=== PATIENT | male | born 1970 | race Caucasian/White ===

== ENCOUNTER 2019-06-07 18:29 | Inpatient (IN) | payer MEDICARE, SELFPAY ==
[2019-06-07 19:13] VITALS: BP 155/92; PULSE 84; RESP 18; TEMP 37.1; O2SAT 97; BMI 34.9
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
[2019-06-07 21:20] VITALS: BP 148/94; PULSE 78; RESP 18; O2SAT 99
--- NOTE | 2019-06-07 21:27 | XRR_ITS ---
PROCEDURE INFORMATION: Exam: XR Abdomen, 1 View Exam date and time: 06/07/2019 9:29 PM Age: 48 years old Clinical indication: Abdominal pain; Prior surgery; Surgery type: Gb; Additional info: Abd pain TECHNIQUE: Imaging protocol: XR of the abdomen. Views: Frontal supine view of the abdomen. 1 View. COMPARISON: CR Abdomen Portable 1 view [id number] 12/24/2016 10:38 AM FINDINGS: Gastrointestinal tract: Normal. No bowel dilation. There has been a cholecystectomy. Moderate colonic stool is noted. Bones/joints: Unremarkable. XR/XR KUB portable [id number] IMPRESSION: No acute findings.
[2019-06-07 21:54] VITALS: RESP 18; O2SAT 98
[2019-06-07 21:54] LABS: Bilirubin Urine Neg (NEGATIVE); Blood Urine Neg (Negative); Glucose Urine UA Norm (Normal); Ketones Urine Negative (Negative); Leukocyte Esterase Urine Negative (Negative); Nitrate Urine Negative (Negative); Protein Urine Neg (Negative); Urine Appearance Clear (CLEAR); Urine Color Straw (Yellow); Urobilinogen Urine Norm (Negative); pH Urine 6.5 (5-7)
[2019-06-07] MEDS: HYDROmorphone 1 mg/mL INJ 1 mL IV (21:54)
[2019-06-07 21:55] VITALS: RESP 18; O2SAT 98
[2019-06-07 21:55] LABS: Add Urine Culture? No; Bacteria Urine TRACE; WBC Urine RARE /hpf (0-5)
[2019-06-07] MEDS: HYDROmorphone 1 mg/mL INJ 1 mL IVP (21:55)
[2019-06-07] MEDS: ondansetron 2 mg/ML SDV 2 mL 4 MG IVP (21:57)
[2019-06-07 21:58] LABS: Basophils # 0.1 10^3/uL (0.0-0.1); Basophils % 0.6 %; Eosinophils # 0.2 10^3/uL (0.0-0.8); Eosinophils % 1.3 %; Hematocrit 39.8 % (42.0-52.0); Hemoglobin 13.7 g/dL (11.7-16.6); Lymphocytes # 4.4 10^3/uL (0.8-4.8); Lymphocytes % 26.6 %; Mean Corpuscular HGB Conc 34.4 g/dL (30.0-36.0); Mean Corpuscular Hemoglobin 30.7 pg (28.0-34.0); Mean Corpuscular Volume 89.2 fL (80-94); Mean Platelet Volume 8.8 fL (7.4-10.4); Monocytes # 1.3 10^3/uL (0.2-0.9); Monocytes % 7.8 %; Neutrophils # 10.6 10^3/uL (1.8-7.7); Neutrophils % 63.3 %; Nucleated Red Blood Cells % 0 %; Platelet Count 428 10^3/cmm (130-400); Red Blood Count 4.46 10^6/uL (4.1-5.3); Red Cell Distribution Width 13.3 % (12.1-15.1); White Blood Count 16.7 10^3/uL (4.0-10.0)
[2019-06-07 22:17] LABS: Alanine Aminotransferase 24 U/L (0-41); Albumin Level 4.4 g/dL (3.5-5.2); Alkaline Phosphatase 152 IU/L (40-130); Anion Gap 17.9 (5-19); Aspartate Amino Transferase 13 U/L (0-40); Blood Urea Nitrogen 9 mg/dL (6-20); C Reactive Protein 70.8 mg/L (0.0-4.9); Calcium 10.2 mg/Dl (8.6-10.0); Carbon Dioxide 21 mmol/L (22-29); Chloride 98 mmol/L (98-107); Globulin 3.8 g/dL (1.3-4.6); Glomerular Filtration Rate 102.7 mL/min (90-130); Glucose 177 mg/dL (74-109); Potassium 3.9 mmol/L (3.5-5.1); Sodium 133 mmol/L (136-145); Total Bilirubin 0.2 mg/dL (0.15-1.2); Total Protein 8.2 g/dL (6.6-8.7)
[2019-06-07 23:18] VITALS: BP 150/99; PULSE 83; RESP 18; O2SAT 98
--- NOTE | 2019-06-07 23:55 | CTR_ITS ---
PROCEDURE INFORMATION: Exam: CT Abdomen And Pelvis With Contrast Exam date and time: 06/07/2019 12:10 AM Age: 48 years old Clinical indication: Abdominal pain; Acute; Prior surgery; Surgery date: 6+ months; Surgery type: Cholecystectomy; Additional info: Abd pain, leukocytosis TECHNIQUE: Imaging protocol: Computed tomography of the abdomen and pelvis with intravenous contrast. Total DLP: 1914.39 mGy-cm Radiation optimization: All CT scans at this facility use at least one of these dose optimization techniques: automated exposure control; mA and/or kV adjustment per patient size (includes targeted exams where dose is matched to clinical indication); or iterative reconstruction. Contrast material: OMNI 300; Contrast volume: 95 ml; Contrast route: 20G; COMPARISON: CT Chest/Abdomen/Pelvis w IV* 2017-02-17 08:51 FINDINGS: Lungs: Left costophrenic sulcus 8mm pulmonary nodule. Liver: Numerous hypodense liver lesions with some adjacent enhancement, additionally lesions are new since 2016. Nonspecific, question liver abscesses given the history. Gallbladder and bile ducts: Cholecystectomy clips in the right upper quadrant. Pancreas: Peripancreatic stranding. Hypodense possible mass in the pancreatic head/uncinate process measuring 2.1 cm. Suspicious for pancreatic mass and acute interstitial pancreatitis. Spleen: Normal. No splenomegaly. Adrenals: Normal. No mass. Kidneys and ureters: Mild nonspecific perinephric stranding. Stomach and bowel: Unremarkable. No obstruction. No mucosal thickening. Appendix: No evidence of appendicitis. Intraperitoneal space: Unremarkable. No free air. No significant fluid collection. Vasculature: Mild to moderate aortic and iliac artery atherosclerotic calcification. Lymph nodes: Unremarkable. No enlarged lymph nodes. Bladder: Unremarkable as visualized. Reproductive: Unremarkable as visualized. Bones/joints: Mild lumbar spondylosis. Moderate lumbar spondylosis. Minimal levoconvex lumbar curvature. Left 12th rib fracture is chronic. Soft tissues: Gynecomastia. Small left inguinal fat protruding hernia. CT/CT abdomen pelvis w con* [id number] IMPRESSION: 1. Numerous hypodense liver lesions with some adjacent enhancement, additionally lesions are new since 2017. Nonspecific, question liver abscesses given the history. Metastases also possible. 2. Peripancreatic stranding. Hypodense possible mass in the pancreatic head/uncinate process measuring 2.1 cm. Suspicious for pancreatic mass and acute interstitial pancreatitis. 3. Left costophrenic sulcus 8mm pulmonary nodule. COMMENT: As per Fleischner Society guidelines for follow-up and management of pulmonary nodules: For patients at low risk (minimal or absent history of smoking and of other known risk factors), recommend initial follow-up chest CT at 6-12 months then at 18-24 months if no change. For patient at high risk (history of smoking or of other known risk factors), recommend initial follow-up chest CT at 3-6 months, then at 9-12 and 24 months if no change. Radiation Dose CTDIVOL = (mGy): DLP = 1914.39 (mGy-cm)
[2019-06-08] VITALS (21 sets, daily range): BP systolic 132–198; BP diastolic 83–131; PULSE 71–113; RESP 16–22; TEMP 36.3–36.8; O2SAT 95–99
[2019-06-08] MEDS: HYDROmorphone 1 mg/mL INJ 1 mL IVP ×3 (01:17→19:53)
[2019-06-08] MEDS: morphine 4 mg/mL SDV 1 mL IVP ×4 (03:21→20:48)
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
[2019-06-08] MEDS: ketorolac 30 mg/mL INJ IVP (04:00)
[2019-06-08 04:55] LABS: Lipase 722 U/L (13-60)
[2019-06-08] MEDS: metoprolol tartrate 25 mg Tablet PO ×3 (04:59→17:24)
[2019-06-08] MEDS: lisinopril 20 mg Tablet PO ×2 (04:59→09:07)
[2019-06-08] MEDS: trazodone 100 mg Tablet 200 MG PO ×2 (04:59→20:12)
[2019-06-08] MEDS: LORazepam 2 mg/mL INJ 1 mL 1 MG IVP (05:00)
[2019-06-08] MEDS: enoxaparin 40 mg/0.4 mL Syringe SUBCUT (05:00)
[2019-06-08] MEDS: sodium chloride 0.9% 1,000 ML 150 ML IV ×3 (05:33→22:06)
[2019-06-08] MEDS: pantoprazole DR 40 mg Tablet PO (09:04)
[2019-06-08] MEDS: aspirin 81 mg EC Tablet PO (09:04)
[2019-06-08] MEDS: clopidogrel 75 mg Tablet PO (09:04)
[2019-06-08] MEDS: PARoxetine 20 mg Tablet 40 MG PO (09:08)
[2019-06-08] MEDS: sennosides-docusate Tablet 1 TAB PO ×2 (09:13→17:24)
[2019-06-08] MEDS: NIFEdipine ER (24 hr) 30 mg Tablet 45 MG PO (13:00)
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
[2019-06-08] MEDS: cefTRIAXone 2,000 MG in sodium chloride 0.9% (plus) 50 ML 100 MG IV (14:51)
[2019-06-08] MEDS: hyDRALAzine 20 mg/mL INJ 1 mL 10 MG IVP (20:13)
[2019-06-08] MEDS: tizanidine 4 mg Tablet PO (20:48)
[2019-06-09] VITALS (15 sets, daily range): BP systolic 159–211; BP diastolic 86–121; PULSE 74–103; RESP 16–22; TEMP 36.7–36.9; O2SAT 92–99
[2019-06-09] MEDS: HYDROmorphone 1 mg/mL INJ 1 mL IVP ×4 (01:14→20:50)
[2019-06-09] MEDS: morphine 4 mg/mL SDV 1 mL IVP ×5 (02:17→17:27)
[2019-06-09 04:34] LABS: Tumor Marker Alpha Fetoprotein 1.5 ng/mL (0-8.3)
[2019-06-09 04:47] LABS: Triglycerides 166 mg/dL (0-150)
[2019-06-09] MEDS: tizanidine 4 mg Tablet PO (05:08)
[2019-06-09] MEDS: enoxaparin 40 mg/0.4 mL Syringe SUBCUT (05:08)
[2019-06-09 06:33] LABS: Basophils # 0.1 10^3/uL (0.0-0.1); Basophils % 0.7 %; Eosinophils # 0.2 10^3/uL (0.0-0.8); Eosinophils % 1.6 %; Hematocrit 41.1 % (42.0-52.0); Hemoglobin 13.5 g/dL (11.7-16.6); Lymphocytes # 2.9 10^3/uL (0.8-4.8); Lymphocytes % 23.9 %; Mean Corpuscular HGB Conc 32.8 g/dL (30.0-36.0); Mean Corpuscular Hemoglobin 29.9 pg (28.0-34.0); Mean Corpuscular Volume 91.1 fL (80-94); Mean Platelet Volume 8.9 fL (7.4-10.4); Monocytes # 1.3 10^3/uL (0.2-0.9); Monocytes % 10.6 %; Neutrophils # 7.6 10^3/uL (1.8-7.7); Neutrophils % 62.8 %; Nucleated Red Blood Cells % 0 %; Platelet Count 393 10^3/cmm (130-400); Red Blood Count 4.51 10^6/uL (4.1-5.3); Red Cell Distribution Width 13.3 % (12.1-15.1)
[2019-06-09 06:46] LABS: Alanine Aminotransferase 58 U/L (0-41); Albumin Level 4.4 g/dL (3.5-5.2); Alkaline Phosphatase 168 IU/L (40-130); Anion Gap 17.9 (5-19); Aspartate Amino Transferase 45 U/L (0-40); Blood Urea Nitrogen 4 mg/dL (6-20); Calcium 9.6 mg/Dl (8.6-10.0); Carbon Dioxide 21 mmol/L (22-29); Chloride 99 mmol/L (98-107); Globulin 2.4 g/dL (1.3-4.6); Glomerular Filtration Rate 143.2 mL/min (90-130); Glucose 184 mg/dL (74-109); Potassium 3.9 mmol/L (3.5-5.1); Sodium 134 mmol/L (136-145); Total Bilirubin 0.3 mg/dL (0.15-1.2); Total Protein 6.8 g/dL (6.6-8.7)
[2019-06-09 07:13] LABS: Lipase 590 U/L (13-60)
[2019-06-09] MEDS: sodium chloride 0.9% 1,000 ML 150 ML IV ×2 (09:51→14:01)
[2019-06-09] MEDS: lisinopril 20 mg Tablet PO (09:52)
[2019-06-09] MEDS: clopidogrel 75 mg Tablet PO (09:52)
[2019-06-09] MEDS: aspirin 81 mg EC Tablet PO (09:52)
[2019-06-09] MEDS: sennosides-docusate Tablet 1 TAB PO (09:52)
[2019-06-09] MEDS: NIFEdipine ER (24 hr) 30 mg Tablet 45 MG PO (09:55)
[2019-06-09] MEDS: metoprolol tartrate 25 mg Tablet PO ×2 (11:38→19:01)
[2019-06-09] MEDS: pantoprazole DR 40 mg Tablet PO (11:39)
[2019-06-09] MEDS: PARoxetine 20 mg Tablet 40 MG PO (11:40)
[2019-06-09 12:21] LABS: Glucose Point of Care 193 mg/dL (70-110)
--- NOTE | 2019-06-09 12:37 | MRR_ITS ---
PROCEDURE INFORMATION: Exam: MR Abdomen Without Contrast Exam date and time: 06/09/2019 9:57 AM Age: 48 years old Clinical indication: Abdominal pain; Prior surgery; Surgery type: Gb; Patient HX: Pancreatic mass or lesion seen on CT; Additional info: Pancreatic mass, liver lesions TECHNIQUE: Imaging protocol: MR of the abdomen without contrast. COMPARISON: CR XR KUB portable [id number] 06/07/2019 10:03 PM, CT of the abdomen and pelvis 06/08/2019. FINDINGS: Limitations: Evaluation is limited secondary to multisequence motion artifact. Liver: There are multiple scattered T2 bright foci within the hepatic parenchyma, with the largest measuring up to 1.5 cm within the posterior right hepatic lobe (image 22, series 7). Additional small foci measure 1 cm or less. Lacking contrast administration coupled with motion artifact, these lesions remain indeterminate. Gallbladder and bile ducts: The gallbladder surgically absent. The common bile duct is normal in caliber. No definite filling defects to suggest choledocholithiasis. No significant intrahepatic ductal dilation. Pancreas: The pancreatic duct is within normal limits. There is a small amount of peripancreatic fluid signal. There is focal increased signal within the pancreatic head/uncinate process. No organized or drainable fluid collection identified. Spleen: No splenomegaly. Adrenals: Unremarkable is visualized. Kidneys and ureters: There is a trace amount of bilateral perinephric fluid signal, which may be physiologic. There is no evidence of hydronephrosis. Stomach and bowel: There is a small amount of fluid signal along the proximal duodenum. Visualized bowel is otherwise grossly unremarkable. Intraperitoneal space: See Pancreas Finding. Arteries: No abdominal aortic aneurysm. Bones/joints: Unremarkable as visualized. Soft tissues: Unremarkable. MR/MR MRCP [id number] IMPRESSION: 1. Findings suggestive of pancreatitis. Focal increased signal within the pancreatic head/uncinate process is indeterminate and may reflect focal interstitial edema. There is no organized or drainable fluid collection identified. The pancreatic duct remains normal in caliber. Consider follow-up contrast-enhanced evaluation in 4-6 weeks following the acute phase to exclude the possibility of a pancreatic head mass. 2. Multiple scattered foci of increased signal within the hepatic parenchyma, the largest measuring up to 1.5 cm. The lack of intravenous contrast coupled with motion artifact make these lesions indeterminate. Differential considerations are broad and include small cysts or hemangiomas with abscesses and metastatic disease not entirely excluded. Attention on follow-up suggested. 3. Status post cholecystectomy. No evidence of choledocholithiasis. 4. Trace fluid signal along the proximal duodenum, likely secondary to adjacent pancreatic inflammatory change. A component of duodenitis is possible.
[2019-06-09] MEDS: fluticasone nasal spray 16gm Btl 1 SPRAY NASAL (14:00)
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
--- NOTE | 2019-06-09 15:26 | PC.NURSE ---
This nurse accompanied pt to MRI. Pt given 4mg morphine IVP during MRI. See MAR for details.
[2019-06-09 16:54] LABS: Glucose Point of Care 179 mg/dL (70-110)
[2019-06-09] MEDS: cefTRIAXone 2,000 MG in sodium chloride 0.9% (plus) 50 ML 100 MG IV (17:38)
[2019-06-09] MEDS: oxyCODONE 20 mg ER (12 HR) Tablet PO (19:02)
[2019-06-09] MEDS: trazodone 100 mg Tablet 200 MG PO (20:49)
[2019-06-09] MEDS: sodium chloride 0.9% 1,000 ML 75 ML IV (20:49)
[2019-06-09 21:48] LABS: Glucose Point of Care 149 mg/dL (70-110)
--- NOTE | 2019-06-09 23:42 | PC.NURSE ---
reassessed pain. pt is asleep in the bed. pt shows no s/s distress, or discomfort. respirations equal bilat
[2019-06-10] VITALS (13 sets, daily range): BP systolic 118–178; BP diastolic 79–105; PULSE 73–92; RESP 18–22; TEMP 36.6–36.8; O2SAT 92–99
[2019-06-10] MEDS: morphine 4 mg/mL SDV 1 mL IVP ×4 (01:48→20:32)
[2019-06-10] MEDS: HYDROmorphone 1 mg/mL INJ 1 mL IVP ×3 (02:26→14:22)
[2019-06-10] MEDS: enoxaparin 40 mg/0.4 mL Syringe SUBCUT (05:44)
[2019-06-10] MEDS: PARoxetine 20 mg Tablet 40 MG PO (08:19)
[2019-06-10] MEDS: pantoprazole DR 40 mg Tablet PO (08:19)
[2019-06-10] MEDS: lisinopril 20 mg Tablet PO (08:22)
[2019-06-10] MEDS: metoprolol tartrate 25 mg Tablet PO ×2 (08:22→17:50)
[2019-06-10] MEDS: oxyCODONE 20 mg ER (12 HR) Tablet PO ×2 (08:24→17:50)
[2019-06-10] MEDS: aspirin 81 mg EC Tablet PO (08:25)
[2019-06-10] MEDS: clopidogrel 75 mg Tablet PO (08:25)
[2019-06-10] MEDS: sennosides-docusate Tablet 1 TAB PO ×2 (08:25→17:50)
[2019-06-10] MEDS: fluticasone nasal spray 16gm Btl 1 SPRAY NASAL (08:25)
[2019-06-10 08:38] LABS: Basophils # 0.1 10^3/uL (0.0-0.1); Basophils % 0.6 %; Eosinophils # 0.2 10^3/uL (0.0-0.8); Eosinophils % 1.5 %; Hematocrit 49.2 % (42.0-52.0); Hemoglobin 15.8 g/dL (11.7-16.6); Lymphocytes # 2.8 10^3/uL (0.8-4.8); Lymphocytes % 24.6 %; Mean Corpuscular HGB Conc 32.1 g/dL (30.0-36.0); Mean Corpuscular Hemoglobin 30.9 pg (28.0-34.0); Mean Corpuscular Volume 96.1 fL (80-94); Mean Platelet Volume 9.1 fL (7.4-10.4); Monocytes # 1.1 10^3/uL (0.2-0.9); Monocytes % 10.1 %; Neutrophils # 7.1 10^3/uL (1.8-7.7); Neutrophils % 62.9 %; Nucleated Red Blood Cells % 0 %; Platelet Count 388 10^3/cmm (130-400); Red Blood Count 5.12 10^6/uL (4.1-5.3); Red Cell Distribution Width 13.6 % (12.1-15.1); White Blood Count 11.3 10^3/uL (4.0-10.0)
--- NOTE | 2019-06-10 09:00 | MR_ITS ---
WS: [id number] MRI ABDOMEN WITHOUT AND WITH GADOLINIUM ENHANCEMENT INDICATION: Assess liver lesions TECHNIQUE: MRI of the abdomen without and with gadolinium enhancement. Motion artifact significantly degrades images. FINDINGS: Exam is significantly limited due to motion artifact. Comparison multiple recent examinations. Prior cholecystectomy. Multiple T2 hyperintense lesions with in the liver unchanged since recent examinations. Largest lesion measures approximately 1.5 CM. Some of the lesions demonstrate peripheral enhancement on the postgadolinium images although degraded by m otion. These lesions remain indeterminant but considering development since 2017 and peripheral enhan cement findings are suspicious for metastatic disease or multifocal abscess. Some may represent irvin nous hemangiomas. Portal vein and splenic vein appear patent. Adrenal glands are normal. Pancreas is only partially visualized on this examination. Focal T2 hyperi ntense lesion in the head of the pancreas measuring 2 cm suspicious for underlying pancreatic neoplas m versus focal pancreatitis. Recommend further evaluation with ERCP. No significant pancreatic ductal dilatation. MR/MR abdomen wo/w con* [id number] IMPRESSION: 1. Images significantly limited by motion artifact. 2. Again seen are multiple T2 hyperintense lesions within the liver the larges t measuring 1.5 cm some with peripheral enhancement. Primary considerations are metastatic disease or multifocal abscess. Some may represent cavernous hemangi omas although the lesions are new since 2017 which is concerning 3. Recommend interval follow-up of the liver lesions with hepatic protocol mul tiphase CT abdomen pelvis after treatment. 4. Pancreas is only partially included on the study but persistent 2 cm round focal signal abnormality in the pancreas suspicious for pancreatic neoplasm jo ann aliya focal pancreatitis. Recommend further evaluation with ERCP. 5. No significant pancreatic ductal dilatation. 6. Prior cholecystectomy.
[2019-06-10 09:04] LABS: Alanine Aminotransferase 71 U/L (0-41); Albumin Level 4.4 g/dL (3.5-5.2); Alkaline Phosphatase 224 IU/L (40-130); Anion Gap 24.1 (5-19); Blood Urea Nitrogen 5 mg/dL (6-20); Carbon Dioxide 16 mmol/L (22-29); Chloride 99 mmol/L (98-107); Globulin 2.8 g/dL (1.3-4.6); Glomerular Filtration Rate 119.9 mL/min (90-130); Glucose 159 mg/dL (74-109); Potassium 4.1 mmol/L (3.5-5.1); Sodium 135 mmol/L (136-145); Total Bilirubin 0.3 mg/dL (0.15-1.2); Total Protein 7.2 g/dL (6.6-8.7)
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
[2019-06-10 09:42] LABS: Aspartate Amino Transferase 43 U/L (0-40); Lipase 386 U/L (13-60)
[2019-06-10 11:55] LABS: Glucose Point of Care 157 mg/dL (70-110)
[2019-06-10] MEDS: sodium chloride 0.9% 1,000 ML 75 ML IV ×2 (12:58→17:55)
[2019-06-10] MEDS: LORazepam 2 mg/mL INJ 1 mL IVP (14:23)
[2019-06-10 17:03] LABS: Glucose Point of Care 140 mg/dL (70-110)
[2019-06-10] MEDS: cefTRIAXone 2,000 MG in sodium chloride 0.9% (plus) 50 ML 100 MG IV (17:50)
[2019-06-10] MEDS: trazodone 100 mg Tablet 200 MG PO (20:33)
[2019-06-10 21:21] LABS: Glucose Point of Care 142 mg/dL (70-110)
[2019-06-10] MEDS: hyDROXYzine 25 mg Capsule PO (21:42)
[2019-06-10] MEDS: tizanidine 4 mg Tablet PO (21:42)
[2019-06-10] MEDS: ketorolac 30 mg/mL INJ 15 MG IVP (21:43)
[2019-06-11] VITALS (13 sets, daily range): BP systolic 124–200; BP diastolic 75–101; PULSE 62–75; RESP 14–23; TEMP 36.4–36.8; O2SAT 93–98
[2019-06-11] MEDS: morphine 4 mg/mL SDV 1 mL IVP ×3 (04:34→15:16)
[2019-06-11] MEDS: enoxaparin 40 mg/0.4 mL Syringe SUBCUT (04:35)
[2019-06-11] MEDS: ketorolac 30 mg/mL INJ 15 MG IVP ×3 (05:21→17:54)
--- NOTE | 2019-06-11 05:53 | PC.PHAR ---
NURSING CALLED AM 06/10/19 TO CLARIFY NIFEDIPINE DOSE - XL 30 MG 1.5 TABLETS. THESE CANNOT BE SPLIT. PROVIDER HAD NOT BEEN ASSIGNED OF PHONE CALL, PLACED MED ON HOLD PENDING NURSING CLARIFICATION
[2019-06-11 07:15] LABS: Glucose Point of Care 135 mg/dL (70-110)
[2019-06-11 08:29] LABS: Basophils # 0.1 10^3/uL (0.0-0.1); Basophils % 0.7 %; Eosinophils # 0.2 10^3/uL (0.0-0.8); Eosinophils % 1.8 %; Hematocrit 42.8 % (42.0-52.0); Hemoglobin 13.8 g/dL (11.7-16.6); Lymphocytes # 2.3 10^3/uL (0.8-4.8); Lymphocytes % 22.8 %; Mean Corpuscular HGB Conc 32.2 g/dL (30.0-36.0); Mean Corpuscular Hemoglobin 30.3 pg (28.0-34.0); Mean Corpuscular Volume 94.1 fL (80-94); Mean Platelet Volume 8.9 fL (7.4-10.4); Monocytes % 9.4 %; Neutrophils # 6.6 10^3/uL (1.8-7.7); Neutrophils % 65.1 %; Nucleated Red Blood Cells % 0 %; Platelet Count 403 10^3/cmm (130-400); Red Blood Count 4.55 10^6/uL (4.1-5.3); Red Cell Distribution Width 13.7 % (12.1-15.1); White Blood Count 10.1 10^3/uL (4.0-10.0)
[2019-06-11 08:46] LABS: Alanine Aminotransferase 53 U/L (0-41); Albumin Level 3.6 g/dL (3.5-5.2); Alkaline Phosphatase 226 IU/L (40-130); Anion Gap 24.1 (5-19); Blood Urea Nitrogen 8 mg/dL (6-20); Calcium 9.8 mg/Dl (8.6-10.0); Chloride 100 mmol/L (98-107); Globulin 3.5 g/dL (1.3-4.6); Glomerular Filtration Rate 102.7 mL/min (90-130); Glucose 140 mg/dL (74-109); Lipase 225 U/L (13-60); Potassium 4.1 mmol/L (3.5-5.1); Sodium 135 mmol/L (136-145); Total Bilirubin 0.2 mg/dL (0.15-1.2); Total Protein 7.1 g/dL (6.6-8.7)
[2019-06-11 08:51] LABS: Aspartate Amino Transferase 22 U/L (0-40); Carbon Dioxide 15 mmol/L (22-29)
[2019-06-11 09:09] LABS: Estmated Average Glucose 143; Hemoglobin A1C 6.6 % (4.0-6.0)
[2019-06-11] MEDS: metoprolol tartrate 25 mg Tablet PO ×2 (09:42→17:53)
[2019-06-11] MEDS: pantoprazole DR 40 mg Tablet PO (09:42)
[2019-06-11] MEDS: sennosides-docusate Tablet 2 TAB PO ×2 (09:42→17:53)
[2019-06-11] MEDS: clopidogrel 75 mg Tablet PO (09:42)
[2019-06-11] MEDS: aspirin 81 mg EC Tablet PO (09:42)
[2019-06-11] MEDS: PARoxetine 20 mg Tablet 40 MG PO (09:42)
[2019-06-11] MEDS: lisinopril 20 mg Tablet PO (09:42)
[2019-06-11] MEDS: oxyCODONE 20 mg ER (12 HR) Tablet PO ×2 (09:42→17:53)
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
--- NOTE | 2019-06-11 10:50 | PC.SOCIAL ---
IMM Page 2 of IMM explained to patient. He is unable to physically sign. Initialed, dated, and timed and placed in chart. Copy provided to patient.
[2019-06-11 11:13] LABS: Cancer Antigen 19 9 1236 U/mL (0-35)
[2019-06-11 11:36] LABS: Glucose Point of Care 143 mg/dL (70-110)
[2019-06-11] MEDS: NIFEdipine 10 mg Capsule 20 MG PO (12:52)
[2019-06-11] MEDS: fluticasone nasal spray 16gm Btl 1 SPRAY NASAL (12:53)
[2019-06-11] MEDS: cefTRIAXone 2,000 MG in sodium chloride 0.9% (plus) 50 ML 100 MG IV (16:05)
[2019-06-11 17:02] LABS: Glucose Point of Care 121 mg/dL (70-110)
[2019-06-11] MEDS: HYDROmorphone 1 mg/mL INJ 1 mL 0.5 MG IVP ×3 (19:56→23:33)
[2019-06-11 21:34] LABS: Glucose Point of Care 139 mg/dL (70-110)
[2019-06-11] MEDS: hyDRALAzine 20 mg/mL INJ 1 mL 10 MG IVP (21:42)
[2019-06-11] MEDS: tizanidine 4 mg Tablet PO (22:26)
[2019-06-11] MEDS: trazodone 100 mg Tablet 200 MG PO (22:26)
[2019-06-11] MEDS: sodium chloride 0.9% 1,000 ML 75 ML IV (22:33)
[2019-06-11] MEDS: hyDROXYzine 25 mg Capsule PO (23:34)
[2019-06-12] VITALS (9 sets, daily range): BP systolic 151–173; BP diastolic 82–98; PULSE 64–70; RESP 14–20; TEMP 36.4–36.9; O2SAT 95–98
[2019-06-12] MEDS: ketorolac 30 mg/mL INJ 15 MG IVP ×3 (00:37→13:31)
[2019-06-12] MEDS: enoxaparin 40 mg/0.4 mL Syringe SUBCUT (06:04)
[2019-06-12 07:02] LABS: Glucose Point of Care 144 mg/dL (70-110)
[2019-06-12] MEDS: HYDROmorphone 1 mg/mL INJ 1 mL 0.5 MG IVP ×6 (07:24→17:49)
[2019-06-12] MEDS: sennosides-docusate Tablet 2 TAB PO (09:28)
[2019-06-12] MEDS: NIFEdipine 10 mg Capsule 20 MG PO ×3 (09:28→20:38)
[2019-06-12] MEDS: aspirin 81 mg EC Tablet PO (09:28)
[2019-06-12] MEDS: metoprolol tartrate 25 mg Tablet PO ×2 (09:28→17:13)
[2019-06-12] MEDS: PARoxetine 20 mg Tablet 40 MG PO (09:28)
[2019-06-12] MEDS: clopidogrel 75 mg Tablet PO (09:28)
[2019-06-12] MEDS: pantoprazole DR 40 mg Tablet PO (09:29)
[2019-06-12] MEDS: lisinopril 20 mg Tablet PO (09:29)
[2019-06-12] MEDS: oxyCODONE 20 mg ER (12 HR) Tablet PO ×2 (09:29→17:12)
[2019-06-12] MEDS: fluticasone nasal spray 16gm Btl 1 SPRAY NASAL (09:36)
[2019-06-12 12:19] LABS: Glucose Point of Care 147 mg/dL (70-110)
[2019-06-12] MEDS: sodium chloride 0.9% 1,000 ML 75 ML IV (12:48)
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
[2019-06-12 16:55] LABS: Glucose Point of Care 111 mg/dL (70-110)
[2019-06-12] MEDS: cefTRIAXone 2,000 MG in sodium chloride 0.9% (plus) 50 ML 100 MG IV (17:12)
--- NOTE | 2019-06-12 19:00 | PC.NURSE ---
Introduction of staff and report received, aidet.
[2019-06-12] MEDS: trazodone 100 mg Tablet 200 MG PO (20:38)
[2019-06-12 20:57] LABS: Glucose Point of Care 112 mg/dL (70-110)
[2019-06-12] MEDS: ketorolac 30 mg/mL INJ IVP (21:03)
[2019-06-12] MEDS: saline nasal spray 44mL Btl 1 SPRAY NASAL (21:41)
[2019-06-13] VITALS (8 sets, daily range): BP systolic 136–205; BP diastolic 82–122; PULSE 69–87; RESP 18–22; TEMP 36.4–36.9; O2SAT 95–99
[2019-06-13] MEDS: ketorolac 30 mg/mL INJ IVP ×3 (02:17→15:30)
[2019-06-13] MEDS: tizanidine 4 mg Tablet PO ×3 (02:22→20:20)
[2019-06-13] MEDS: enoxaparin 40 mg/0.4 mL Syringe SUBCUT (04:32)
[2019-06-13] MEDS: sodium chloride 0.9% 1,000 ML 75 ML IV (04:35)
[2019-06-13] MEDS: lisinopril 20 mg Tablet PO (08:32)
[2019-06-13] MEDS: pantoprazole DR 40 mg Tablet PO (08:32)
[2019-06-13] MEDS: metoprolol tartrate 25 mg Tablet PO ×2 (08:32→17:17)
[2019-06-13] MEDS: PARoxetine 20 mg Tablet 40 MG PO (08:32)
[2019-06-13] MEDS: NIFEdipine 10 mg Capsule 20 MG PO ×3 (08:32→20:21)
[2019-06-13] MEDS: clopidogrel 75 mg Tablet PO (08:32)
[2019-06-13] MEDS: aspirin 81 mg EC Tablet PO (08:32)
[2019-06-13] MEDS: oxyCODONE 20 mg ER (12 HR) Tablet PO ×2 (08:33→17:16)
[2019-06-13] MEDS: sennosides-docusate Tablet 2 TAB PO ×2 (08:34→17:17)
[2019-06-13] MEDS: fluticasone nasal spray 16gm Btl 1 SPRAY NASAL (08:37)
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
[2019-06-13] MEDS: amoxicillin-clav 875-125 mg Tablet 1 TAB PO ×2 (09:31→17:17)
--- NOTE | 2019-06-13 10:35 | PC.SOCIAL ---
IMM Updated Page 2 of IMM updated and given to patient. Initialed, dated, and timed and placed back in chart.
[2019-06-13 11:35] LABS: Glucose Point of Care 150 mg/dL (70-110)
[2019-06-13] MEDS: simethicone 80 mg Chew PO (14:14)
[2019-06-13 16:21] LABS: Glucose Point of Care 153 mg/dL (70-110)
[2019-06-13] MEDS: ketorolac 10 mg Tablet PO (18:22)
[2019-06-13] MEDS: trazodone 100 mg Tablet 200 MG PO (20:20)
[2019-06-14] VITALS: BP 161/92; PULSE 85; RESP 18; TEMP 36.9; O2SAT 99
[2019-06-14] MEDS: ketorolac 10 mg Tablet PO ×3 (00:44→12:37)
[2019-06-14] MEDS: simethicone 80 mg Chew PO (00:46)
[2019-06-14] MEDS: tizanidine 4 mg Tablet PO ×2 (01:21→09:43)
[2019-06-14 06:36] LABS: Glucose Point of Care 203 mg/dL (70-110)
--- NOTE | 2019-06-14 07:39 | PC.NURSE ---
Patient refused 0700 vitals
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
[2019-06-14 09:16] VITALS: RESP 14
[2019-06-14] MEDS: oxyCODONE 20 mg ER (12 HR) Tablet PO (09:16)
[2019-06-14] MEDS: NIFEdipine 10 mg Capsule 20 MG PO ×2 (09:16→15:09)
[2019-06-14] MEDS: lisinopril 20 mg Tablet PO (09:16)
[2019-06-14] MEDS: sennosides-docusate Tablet 2 TAB PO (09:16)
[2019-06-14] MEDS: aspirin 81 mg EC Tablet PO (09:16)
[2019-06-14] MEDS: amoxicillin-clav 875-125 mg Tablet 1 TAB PO (09:16)
[2019-06-14] MEDS: clopidogrel 75 mg Tablet PO (09:16)
[2019-06-14] MEDS: pantoprazole DR 40 mg Tablet PO (09:16)
[2019-06-14] MEDS: PARoxetine 20 mg Tablet 40 MG PO (09:16)
[2019-06-14] MEDS: metoprolol tartrate 25 mg Tablet PO (09:16)
[2019-06-14] MEDS: fluticasone nasal spray 16gm Btl 1 SPRAY NASAL (09:18)
[2019-06-14 11:26] VITALS: BP 145/83; PULSE 77; RESP 18; TEMP 36.8; O2SAT 98
[2019-06-14 11:47] LABS: Glucose Point of Care 185 mg/dL (70-110)
[2019-06-14 15:21] VITALS: BP 165/112; PULSE 83; RESP 18; TEMP 36.4; O2SAT 98
[2019-06-14 15:53] VITALS: RESP 18; TEMP 36.4; O2SAT 98
[2019-06-14 15:54] VITALS: BP 145/83; PULSE 83; RESP 18; TEMP 36.4; O2SAT 98
--- NOTE | 2019-06-14 16:15 | PC.NURSE ---
Discharge Discharge instructions given per the physician's order. Patient verbalized understanding and did not have any further questions.
== END 2019-06-14 16:24 | disposition home health service (06) | DRG 440 ==
LOC: ER 21:05 → MEDSURG 06-08 03:58
PROVIDERS: Internal Medicine; Admitting Provider Internal Medicine; Emergency Provider Emergency Medicine; Family Provider Family Medicine; PCP Family Medicine; Visit Provider Family Medicine
DX: K85.90 Acute pancreatitis without necrosis or infection, unspecified (principal); R91.1 Solitary pulmonary nodule; K59.00 Constipation, unspecified; K76.9 Liver disease, unspecified; I10 Essential (primary) hypertension; E11.9 Type 2 diabetes mellitus without complications; E66.01 Morbid (severe) obesity due to excess calories; Z68.35 Body mass index [BMI] 35.0-35.9, adult; Z89.201 Acquired absence of right upper limb, unspecified level; F41.8 Other specified anxiety disorders; Z79.82 Long term (current) use of aspirin; Z79.02 Long term (current) use of antithrombotics/antiplatelets; F17.210 Nicotine dependence, cigarettes, uncomplicated
CPT/HCPCS: 36415; 36416; 45915; 74018; 74177; 74181; 74183; 80053; 81001; 82105; 82962; 83036; 83690; 84478; 85025; 86140; 86301; 87040; 90686; 96372; 96374; 96375; 99282; A9579; J0360; J0696; J1170; J1650; J1815; J1885; J2060; J2270; J2405; J7030; Q9967; S0030

== ENCOUNTER 2019-06-27 07:51 | Inpatient (IN) | payer MEDICARE, SELFPAY ==
[2019-06-27 07:51] VITALS: BP 158/88; PULSE 78; RESP 18; TEMP 36.8; O2SAT 98; BMI 33.2
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
--- NOTE | 2019-06-27 08:20 | ECG_ITS ---
Measurements Intervals [place] Rate: 75 P: 41 WA: 140 QRS: 33 QRSD: 102 T: 31 QT: 417 QTc: 467 SINUS RHYTHM Compared to ECG 03/28/2019 18:53:22 No significant changes Electronically Signed On 06-27-2019 15:26:21 HOSPITAL PLAN ADMINISTRATOR by Joe Ocampo M.D. [email or web address]
[2019-06-27] MEDS: LORazepam 1 mg Tablet PO (08:35)
[2019-06-27 08:45] LABS: Urine Appearance Clear (CLEAR); Urine Color Yellow (Yellow)
[2019-06-27 08:46] LABS: Add Urine Microscopic? YES; Bilirubin Urine 1+ (NEGATIVE); Blood Urine Neg (Negative); Glucose Urine UA Norm (Normal); Ketones Urine 3+ (Negative); Leukocyte Esterase Urine Negative (Negative); Nitrate Urine Negative (Negative); Protein Urine 1+ (Negative); Urobilinogen Urine 1 mg/dL (Negative)
[2019-06-27 08:52] LABS: Add Urine Culture? No; Bacteria Urine 1+; Mucus Urine 2+
[2019-06-27 08:57] LABS: Amphetamines Screen Urine Positive (Negative); Barbiturates Screen Urine Negative (Negative); Benzodiazepines Screen Urine Negative (Negative); Cocaine Screen Urine Negative (Negative); Opiate Screen Urine Negative (Negative); PCP Screen Urine Negative (Negative); THC Screen Urine Negative (Negative)
[2019-06-27] MEDS: LORazepam 2 mg/mL INJ 1 mL 1 MG IM (09:32)
[2019-06-27] MEDS: diphenhydrAMINE 50 mg/mL SDV 1mL IM (09:33)
[2019-06-27] MEDS: ziprasidone 20 mg/mL SDV IM (09:33)
[2019-06-27 10:05] LABS: Basophils # 0.1 10^3/uL (0.0-0.1); Basophils % 0.9 %; Eosinophils % 0.2 %; Hematocrit 39.5 % (42.0-52.0); Hemoglobin 13.5 g/dL (11.7-16.6); Lymphocytes # 1.9 10^3/uL (0.8-4.8); Lymphocytes % 19.1 %; Mean Corpuscular HGB Conc 34.2 g/dL (30.0-36.0); Mean Corpuscular Hemoglobin 30.1 pg (28.0-34.0); Monocytes # 0.5 10^3/uL (0.2-0.9); Monocytes % 5.3 %; Neutrophils # 7.3 10^3/uL (1.8-7.7); Neutrophils % 73.7 %; Nucleated Red Blood Cells % 0 %; Platelet Count 257 10^3/cmm (130-400); Red Blood Count 4.49 10^6/uL (4.1-5.3); Red Cell Distribution Width 13.7 % (12.1-15.1); White Blood Count 9.9 10^3/uL (4.0-10.0)
--- NOTE | 2019-06-27 10:12 | PC.NURSE ---
pt resting well after medication administration-1:1 sitter remains at bedside
[2019-06-27 11:26] LABS: Alanine Aminotransferase 86 U/L (0-41); Albumin Level 4.2 g/dL (3.5-5.2); Alcohol Level 47 mg/dL (0-10); Alkaline Phosphatase 155 IU/L (40-130); Aspartate Amino Transferase 79 U/L (0-40); Blood Urea Nitrogen 12 mg/dL (6-20); Calcium 8.9 mg/dL (8.5-10.5); Carbon Dioxide 15 mmol/L (22-29); Chloride 93 mmol/L (98-107); Glomerular Filtration Rate 89.7 mL/min (90-130); Glucose 156 mg/dL (74-109); Sodium 135 mmol/L (136-145); Thyroid Stimulating Hormone 0.68 uIU/mL (0.27-4.20); Total Bilirubin 0.4 mg/dL (0.15-1.2); Total Protein 7.2 g/dL (6.6-8.7)
[2019-06-27 11:30] LABS: Acetaminophen < 5.0 ug/mL (10-30); Salicylate < 0.3 mg/dL (3-10)
--- NOTE | 2019-06-27 11:42 | PC.PHAR ---
meds put in are meds that the pharmacy has filled recently-pt states he thinks that he is taking all the medications.
[2019-06-27 12:54] VITALS: BP 178/93; PULSE 91; RESP 16; TEMP 37; O2SAT 96
[2019-06-27 14:24] LABS: Testosterone Total 173.3 ng/dL (249-836)
[2019-06-27] MEDS: pantoprazole DR 40 mg Tablet PO (15:10)
[2019-06-27 15:28] VITALS: BP 149/87; PULSE 90; RESP 18; TEMP 36.8
[2019-06-27] MEDS: sennosides-docusate Tablet 2 TAB PO (17:38)
[2019-06-27] MEDS: isosorbide mononitrate ER 30 mg Tablet PO (17:38)
[2019-06-27] MEDS: metoprolol tartrate 50 mg Tablet PO (18:25)
[2019-06-27] MEDS: acetaminophen 325 mg Tablet 650 MG PO (18:25)
[2019-06-27] MEDS: ranolazine (12HR) 500 mg Tablet PO (19:00)
[2019-06-27] MEDS: hyDROXYzine 25 mg Capsule PO (21:20)
[2019-06-27] MEDS: trazodone 50 mg Tablet PO ×2 (21:23→22:27)
[2019-06-27 21:31] VITALS: BP 174/105; PULSE 86; RESP 21; TEMP 36.4; O2SAT 97
[2019-06-27 23:07] VITALS: RESP 16; O2SAT 96
[2019-06-28] MEDS: OLANZapine ODT 5 MG TABLET PO ×2 (00:37→09:19)
[2019-06-28] MEDS: acetaminophen 325 mg Tablet 650 MG PO ×3 (00:39→21:24)
--- NOTE | 2019-06-28 00:48 | PC.NURSE ---
Patient frequently up to the nurses station. Patient is irritable and reports feeling agitated and stated, I feel like I am going to flip out. Reported having difficulty sleeping. Received zyprexa zydis 5 mg PO and tylenol 650 mg PO for c/o headache with pain that he rates at a 5. Will reassess effectiveness of prn's and continue to monitor.
[2019-06-28 06:00] VITALS: BP 196/113; PULSE 101; RESP 18; TEMP 36.7; O2SAT 97
[2019-06-28] MEDS: cloNIDine 0.1 mg Tablet PO (06:46)
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
[2019-06-28] MEDS: ranolazine (12HR) 500 mg Tablet PO ×2 (09:19→18:24)
[2019-06-28] MEDS: meloxicam 7.5 mg tablet PO (09:19)
[2019-06-28] MEDS: clopidogrel 75 mg Tablet PO (09:20)
[2019-06-28] MEDS: lisinopril 20 mg Tablet PO (09:20)
[2019-06-28] MEDS: isosorbide mononitrate ER 30 mg Tablet PO ×2 (09:20→18:24)
[2019-06-28] MEDS: metoprolol tartrate 50 mg Tablet PO ×2 (09:20→18:24)
[2019-06-28] MEDS: NIFEdipine ER (24 hr) 30 mg Tablet 90 MG PO (09:21)
[2019-06-28] MEDS: pantoprazole DR 40 mg Tablet PO (09:22)
[2019-06-28] MEDS: sennosides-docusate Tablet 2 TAB PO ×2 (09:22→18:24)
[2019-06-28] MEDS: aspirin 81 mg EC Tablet PO (09:24)
[2019-06-28] MEDS: ketorolac 10 mg Tablet PO ×2 (09:55→16:01)
[2019-06-28] MEDS: tizanidine 4 mg Tablet PO ×2 (09:55→16:01)
[2019-06-28] MEDS: hyDROXYzine 25 mg Capsule PO ×3 (10:30→21:24)
[2019-06-28] MEDS: LORazepam 0.5 mg Tablet PO ×2 (12:16→18:32)
[2019-06-28 14:00] VITALS: BP 143/97; PULSE 127; RESP 18; TEMP 36.6; O2SAT 95
[2019-06-28] MEDS: nicotine 21 mg Patch 1 PATCH TRANSDERMA (14:29)
--- NOTE | 2019-06-28 18:30 | PC.NURSE ---
pt note: PRN ATIVAN 0.5MG GIVEN TWICE TODAY 6HOURS APART.
[2019-06-28 21:02] VITALS: BP 145/91; PULSE 80; RESP 20; TEMP 36.8; O2SAT 97
[2019-06-28] MEDS: trazodone 100 mg Tablet 200 MG PO (21:24)
[2019-06-28] MEDS: mirtazapine 15 mg Tablet PO (21:24)
[2019-06-29] MEDS: tizanidine 4 mg Tablet PO ×3 (02:31→17:21)
[2019-06-29] MEDS: LORazepam 0.5 mg Tablet PO ×2 (02:31→10:08)
[2019-06-29] MEDS: acetaminophen 325 mg Tablet 650 MG PO (02:33)
[2019-06-29 05:57] VITALS: BP 175/114; PULSE 112; RESP 20; TEMP 36.9; O2SAT 97
[2019-06-29] MEDS: hyDROXYzine 25 mg Capsule PO ×3 (08:50→21:10)
[2019-06-29] MEDS: NIFEdipine ER (24 hr) 30 mg Tablet 90 MG PO (08:50)
[2019-06-29] MEDS: metoprolol tartrate 50 mg Tablet PO ×2 (08:50→17:14)
[2019-06-29] MEDS: lisinopril 20 mg Tablet PO (08:50)
[2019-06-29] MEDS: ranolazine (12HR) 500 mg Tablet PO ×2 (08:50→17:14)
[2019-06-29] MEDS: pantoprazole DR 40 mg Tablet PO (08:51)
[2019-06-29] MEDS: clopidogrel 75 mg Tablet PO (08:51)
[2019-06-29] MEDS: isosorbide mononitrate ER 30 mg Tablet PO ×2 (08:51→17:14)
[2019-06-29] MEDS: meloxicam 7.5 mg tablet PO (08:51)
[2019-06-29] MEDS: sennosides-docusate Tablet 2 TAB PO ×2 (08:51→17:13)
[2019-06-29] MEDS: ondansetron 4 MG Tablet PO (08:51)
[2019-06-29] MEDS: aspirin 81 mg EC Tablet PO (08:54)
[2019-06-29] MEDS: quetiapine 25 mg Tablet PO ×2 (11:10→21:10)
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
[2019-06-29 11:54] LABS: Anion Gap 18.3 (5-19); Blood Urea Nitrogen 5 mg/dL (6-20); Calcium 10.3 mg/dL (8.5-10.5); Carbon Dioxide 24 mmol/L (22-29); Chloride 94 mmol/L (98-107); Creatinine Clr Calc Pharmacy 150.3002; Glomerular Filtration Rate 119.9 mL/min (90-130); Glucose 309 mg/dL (74-109); Osmolality Calculated 283 mOsm/kg (285-295); Potassium 3.3 mmol/L (3.5-5.1); Sodium 133 mmol/L (136-145)
[2019-06-29 14:00] VITALS: BP 153/93; PULSE 114; RESP 19; TEMP 36.9; O2SAT 95
[2019-06-29] MEDS: ketorolac 10 mg Tablet PO (14:51)
[2019-06-29] MEDS: CLONazepam 1 mg Tablet PO (21:09)
[2019-06-29] MEDS: mirtazapine 15 mg Tablet PO (21:10)
[2019-06-29] MEDS: trazodone 100 mg Tablet 200 MG PO (21:10)
[2019-06-29 21:39] VITALS: BP 124/82; PULSE 91; RESP 19; TEMP 36.9; O2SAT 98
[2019-06-30] MEDS: LORazepam 0.5 mg Tablet PO (00:36)
[2019-06-30] MEDS: tizanidine 4 mg Tablet PO ×2 (05:14→22:12)
[2019-06-30 06:00] VITALS: BP 143/94; PULSE 135; RESP 19; TEMP 37; O2SAT 96
[2019-06-30] MEDS: ranolazine (12HR) 500 mg Tablet PO ×2 (09:07→17:00)
[2019-06-30] MEDS: sennosides-docusate Tablet 2 TAB PO ×2 (09:07→17:00)
[2019-06-30] MEDS: lisinopril 20 mg Tablet PO (09:07)
[2019-06-30] MEDS: NIFEdipine ER (24 hr) 30 mg Tablet 90 MG PO (09:08)
[2019-06-30] MEDS: hyDROXYzine 25 mg Capsule PO ×3 (09:08→20:58)
[2019-06-30] MEDS: clopidogrel 75 mg Tablet PO (09:09)
[2019-06-30] MEDS: meloxicam 7.5 mg tablet PO (09:09)
[2019-06-30] MEDS: pantoprazole DR 40 mg Tablet PO (09:09)
[2019-06-30] MEDS: isosorbide mononitrate ER 30 mg Tablet PO ×2 (09:09→17:00)
[2019-06-30] MEDS: metoprolol tartrate 50 mg Tablet PO ×2 (09:09→17:00)
[2019-06-30 10:19] VITALS: BP 181/108; PULSE 108; O2SAT 106
--- NOTE | 2019-06-30 10:19 | PC.NURSE ---
staff reported pt blood presure was 181/108. aware and ordered pt to be plced on ciwa protocol and will cont to monitor.
[2019-06-30] MEDS: LORazepam 2 mg Tablet PO (10:30)
--- NOTE | 2019-06-30 10:30 | PC.NURSE ---
PER [facility] PROTOCOL OF 10,PT WAS ADMINISTERED ATIVAN 2 MG PO . WILL CONT TO MONITOR AND FOLLOW UP NEEDED
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
--- NOTE | 2019-06-30 11:15 | PC.NURSE ---
PRN ATIVAN PER CIWA FOLLOW-UP PT IS LESS ANXIOUS AND RESTING ON BED. WILL CONT TO MONITOR AND FOLLOW UP NEEDED
[2019-06-30] MEDS: ketorolac 10 mg Tablet PO (12:02)
[2019-06-30 12:20] VITALS: BP 159/96; PULSE 120; RESP 18
--- NOTE | 2019-06-30 12:30 | PC.NURSE ---
DR LR AWARE OF RECHECK OF BP AND CURRENTLY IS 159/96-117. NO NEW ORDERS. WILL CONT TO MONITOR .
[2019-06-30] MEDS: OLANZapine ODT 5 MG TABLET PO (18:15)
--- NOTE | 2019-06-30 18:15 | PC.NURSE ---
PT COMING UP TO THE NURSES STATION FREQUENTLY ASKING FOR ATIVAN. PT HAS BEEN SCORED ORDERED BUT CURRENTLY HASNT BEEN SCORING PER [facility] PROTOCOL FOR MEDICATION. PT SAYS HE THINKS HE WAS HEARING VOICES. ADMINISTERED ZYPREXA ZYDIS ORDERED. WILL CONT TO MONITOR AND FOLLOW UP NEEDED
--- NOTE | 2019-06-30 18:55 | PC.NURSE ---
PT CURRENTLY IS RESTING IN BED. VOICED MEDICATION HELPED SOME. WILL CONT TO MONITOR AND FOLLOW UP NEEDED
[2019-06-30] MEDS: CLONazepam 1 mg Tablet PO (20:58)
[2019-06-30] MEDS: trazodone 100 mg Tablet 200 MG PO (20:58)
[2019-06-30] MEDS: mirtazapine 15 mg Tablet PO (20:58)
[2019-06-30] MEDS: quetiapine 25 mg Tablet PO (20:58)
[2019-06-30 21:38] VITALS: BP 155/102; PULSE 104; RESP 17; TEMP 37; O2SAT 98
[2019-07-01] MEDS: LORazepam 2 mg Tablet PO (01:35)
[2019-07-01 07:11] VITALS: BP 161/105; PULSE 120; RESP 18; TEMP 37.2; O2SAT 97
[2019-07-01] MEDS: isosorbide mononitrate ER 30 mg Tablet PO (08:17)
[2019-07-01] MEDS: NIFEdipine ER (24 hr) 30 mg Tablet 90 MG PO (08:17)
[2019-07-01] MEDS: ranolazine (12HR) 500 mg Tablet PO (08:17)
[2019-07-01] MEDS: sennosides-docusate Tablet 2 TAB PO (08:17)
[2019-07-01] MEDS: ketorolac 10 mg Tablet PO (08:20)
[2019-07-01] MEDS: meloxicam 7.5 mg tablet PO (08:20)
[2019-07-01] MEDS: clopidogrel 75 mg Tablet PO (08:20)
[2019-07-01] MEDS: thiamine 100 mg Tablet PO (08:20)
[2019-07-01] MEDS: multivitamin therapeutic Tablet 1 TAB PO (08:20)
[2019-07-01] MEDS: folic acid 1 mg Tablet PO (08:20)
[2019-07-01] MEDS: lisinopril 20 mg Tablet PO (08:20)
[2019-07-01] MEDS: pantoprazole DR 40 mg Tablet PO (08:20)
[2019-07-01] MEDS: metoprolol tartrate 50 mg Tablet PO (08:20)
[2019-07-01] MEDS: hyDROXYzine 25 mg Capsule PO ×2 (08:21→14:10)
[2019-07-01 13:24] VITALS: BP 156/101; PULSE 120; RESP 20; TEMP 37.1; O2SAT 97
--- NOTE | 2019-07-01 13:24 | PC.NURSE ---
PATIENT NOTE PATIENTS BLOOD PRESSURE WAS 156/101 AND PULSE 119. AFTER PATIENT HAD SCHEDULED [facility] STAFF RECHECKED PATIENTS BLOOD PRESSURE AND IT WAS 145/97 AND PULSE 90.
[2019-07-01 15:49] VITALS: BP 145/97; PULSE 90
[2019-07-01 16:44] VITALS: BP 145/97; PULSE 120; RESP 20; TEMP 37.2
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
[2019-07-03 00:11] LABS: Testosterone, Free 29.2 pg/mL (46.0-224.0)
== END 2019-07-01 16:56 | disposition home or self-care (01) | DRG 885 ==
LOC: ER 11:53 → NP 12:42
PROVIDERS: Admitting Provider Psychiatry & Neurology Psychiatry; Emergency Provider Nurse Practitioner Family; Family Provider Family Medicine; PCP Family Medicine; Visit Provider Psychiatry & Neurology Psychiatry
DX: F33.2 Major depressive disorder, recurrent severe without psychotic features (principal); K85.90 Acute pancreatitis without necrosis or infection, unspecified; R45.851 Suicidal ideations; F43.12 Post-traumatic stress disorder, chronic; F10.21 Alcohol dependence, in remission; Z88.8 Allergy status to other drugs, medicaments and biological substances; Z79.02 Long term (current) use of antithrombotics/antiplatelets; Z79.82 Long term (current) use of aspirin; Z79.899 Other long term (current) drug therapy; K76.9 Liver disease, unspecified
CPT/HCPCS: 12345; 36415; 80048; 80053; 80307; 81001; 84402; 84403; 84443; 85025; 93005; 94660; 96372; 99284; J1200; J2060; J3486; Q0162

== ENCOUNTER 2019-08-02 10:17 | Inpatient (IN) | payer MEDICARE, SELFPAY ==
[2019-08-02] VITALS (7 sets, daily range): BP systolic 108–165; BP diastolic 67–96; PULSE 83–102; RESP 15–20; TEMP 36.6–36.8; O2SAT 93–100; BMI 29.5
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
[2019-08-02] MEDS: sodium chloride 0.9% 1,000 ML 999 ML IV ×2 (10:55→12:46)
[2019-08-02] MEDS: ondansetron 2 mg/ML SDV 2 mL 4 MG IVP (10:55)
[2019-08-02 11:12] LABS: Influenza A by IFA Negative (Negative); Influenza B by IFA Negative (Negative)
[2019-08-02 11:38] LABS: Add Urine Microscopic? YES; Bilirubin Urine 2+ (NEGATIVE); Blood Urine Trace (Negative); Glucose Urine UA Norm (Normal); Ketones Urine 3+ (Negative); Leukocyte Esterase Urine Trace (Negative); Nitrate Urine Positive (Negative); Protein Urine 2+ (Negative); Urine Appearance Clear (CLEAR); Urine Color Brown (Yellow); Urobilinogen Urine 8 mg/dL (Negative)
[2019-08-02 11:52] LABS: Amphetamines Screen Urine Negative (Negative); Barbiturates Screen Urine Negative (Negative); Benzodiazepines Screen Urine Negative (Negative); Cocaine Screen Urine Negative (Negative); PCP Screen Urine Negative (Negative); THC Screen Urine Negative (Negative)
[2019-08-02 11:55] LABS: Basophils % 0.1 %; Hemoglobin 11.2 g/dL (11.7-16.6); Lymphocytes # 0.9 10^3/uL (0.8-4.8); Lymphocytes % 9.1 %; Mean Corpuscular HGB Conc 33.9 g/dL (30.0-36.0); Mean Corpuscular Hemoglobin 29.7 pg (28.0-34.0); Mean Corpuscular Volume 87.5 fL (80-94); Monocytes # 1.1 10^3/uL (0.2-0.9); Monocytes % 11.1 %; Neutrophils # 7.9 10^3/uL (1.8-7.7); Neutrophils % 78.6 %; Nucleated Red Blood Cells % 0.2 %; Platelet Count 72 10^3/cmm (130-400); Red Blood Count 3.77 10^6/uL (4.1-5.3); Red Cell Distribution Width 16.4 % (12.1-15.1)
[2019-08-02 11:58] LABS: Add Urine Culture? Yes; Bacteria Urine 2+; Mucus Urine 1+; RBC Urine 0-4 /hpf (0-2); WBC Urine 0-4 /hpf (0-5)
[2019-08-02] MEDS: cefTRIAXone 1,000 MG in sodium chloride 0.9% (plus) 50 ML 100 MG IV (12:00)
[2019-08-02 12:05] LABS: Alanine Aminotransferase 76 U/L (0-41); Albumin Level 2.7 g/dL (3.5-5.2); Alkaline Phosphatase 611 IU/L (40-130); Anion Gap 37.5 (5-19); Blood Urea Nitrogen 12 mg/dL (6-20); Calcium 7.7 mg/dL (8.5-10.5); Carbon Dioxide 11 mmol/L (22-29); Chloride 87 mmol/L (98-107); Globulin 3.6 g/dL (1.3-4.6); Glomerular Filtration Rate 89.3 mL/min (90-130); Glucose 139 mg/dL (65-115); Lipase 201 U/L (13-60); Potassium 3.5 mmol/L (3.5-5.1); Sodium 132 mmol/L (136-145); Total Bilirubin 2.6 mg/dL (0.15-1.2); Total Protein 6.3 g/dL (6.6-8.7)
[2019-08-02 12:07] LABS: Lactic Sepsis W/Reflex 1.4 mmol/L (0.5-2.2)
[2019-08-02 12:09] LABS: Alcohol Level < 10 mg/dL (0-10)
[2019-08-02 12:13] LABS: Aspartate Amino Transferase 160 U/L (0-40)
[2019-08-02] MEDS: LORazepam 1 mg Tablet 0.5 MG PO (12:46)
[2019-08-02] MEDS: sodium chloride 0.9% 1,000 ML 100 ML IV (14:05)
[2019-08-02 15:08] LABS: ABG PH Result 7.33 (7.35-7.45); Arterial Blood Gas Hematocrit 35.1 % (42-52); Base Excess ABG -15.5 mmol/L (-2.0-2.0); Blood Gas Allen Test Pos; Blood Gas Sample Site Femoral, left; Blood Gas Sample Type Arterial; Oxygen Device ROOM AIR
[2019-08-02 15:09] LABS: ABG PCO2 15.1 mmHg (35-45)
--- NOTE | 2019-08-02 15:28 | US_ITS ---
WS: [id number] ULTRASOUND ABDOMEN LIMITED CLINICAL INFORMATION: elevated bilirubin and liver enzymes COMPARISON: None. FINDINGS: Liver Size: Hepatomegaly Craniocaudal length: 18.3 cm. Echogenicity: Diffuse coarse heterogeneous echogenicity with multiple hypoechoic lesions Bile ducts Intrahepatic ducts: Normal. Common bile duct diameter: 6.5 mm. Gallbladder Removed Pancreas Not well visualized Right kidney: Normal. Hydronephrosis: None. Size: 11.9 cm x 7.0 cm x 6.7 cm. Abdominal aorta and IVC Visualized portions are normal. Ascites: None. US/US abdomen limited [id number] IMPRESSION: 1. Prior cholecystectomy. 2. Hepatomegaly with diffuse coarse heterogeneous liver echotexture with multi ple hypoechoic lesions suspicious for metastatic disease. This can be further e valuated with CT abdomen pelvis liver phase protocol. 3. Normal right kidney. 4. Normal common bile duct.
[2019-08-02 16:45] LABS: INR 1.14 (0.8-1.2)
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
--- NOTE | 2019-08-02 16:49 | CTR_ITS ---
PROCEDURE INFORMATION: Exam: CT Abdomen And Pelvis Without And With Contrast; Liver Exam date and time: 08/02/2019 5:11 PM Age: 49 years old Clinical indication: Nausea and vomiting; Patient HX: Nausea vomitting; Additional info: Intractable nausea and vomiting TECHNIQUE: Imaging protocol: Computed tomography of the abdomen and pelvis without and with intravenous contrast. Exam focused on the liver. Total DLP: 4427.08 mGy-cm Radiation optimization: All CT scans at this facility use at least one of these dose optimization techniques: automated exposure control; mA and/or kV adjustment per patient size (includes targeted exams where dose is matched to clinical indication); or iterative reconstruction. Contrast material: OMNI 300; Contrast volume: 95 ml; Contrast route: 18G; COMPARISON: CT abdomen pelvis w con* [id number] 06/08/2019 1:31 AM FINDINGS: Liver: There is fatty infiltration liver. Multiple peripherally enhancing liver masses are identified compatible with metastatic disease. There is an increase in size and number compared to the prior exam. One the largest is in the posterior right lobe of the liver image 27 measuring 3.1 x 2.8 cm in size today. Previously it measured 2.4 by 2.5 cm in size at the same image level. Gallbladder and bile ducts: There has been a cholecystectomy. There is no common bile duct dilation. Lungs: Nonspecific patchy small bibasilar airspace opacities are present, consistent with atelectasis, edema, or pneumonia. Pancreas: There is a 3.2 by 3.1 cm hypodense mass in the head of the pancreas image 66. This is increased since the prior exam where it measured 2.1 cm. There is increased peripancreatic edema compatible with pancreatitis especially involving the distal body and tail the pancreas. Adjacent to the body of the pancreas, there is a new fluid collection measuring 2.5 x 1.7 cm in size compatible with a probable pseudocyst image 39. No evidence of pancreatic necrosis. Spleen: Normal. No splenomegaly. Adrenals: Normal. No mass. Kidneys and ureters: There is no evidence of hydronephrosis. There is no evidence of renal calcifications. Stomach and bowel: There is mild wall thickening and edema of the colon especially the splenic flexure of the colon and proximal descending colon compatible with reactive changes to the pancreatitis or mild colitis. Appendix: A normal appendix is identified. Intraperitoneal space: No free air. No abscess. Lymph nodes: Unremarkable. No enlarged lymph nodes. Vasculature: The aorta demonstrates mild atherosclerotic calcification. Bladder: There is nonspecific bladder wall thickening. This may be related to incomplete distention. Reproductive: The prostate demonstrates mild nonspecific enlargement. The seminal vesicles are normal. Bones/joints: Moderate degenerative changes are noted in the spine. No acute fracture. No bony destructive lesion. Soft tissues: There is a fat-containing umbilical hernia. CT/CT abdomen pelvis wo/w [id number] IMPRESSION: 1. Nonspecific patchy small bibasilar airspace opacities are present, consistent with atelectasis, edema, or pneumonia. 2. Increasing liver metastatic disease. Masses are increasing in size and number. 3. Increasing pancreatitis. Probable pseudocyst. 4. Mass in the head of the pancreas is larger. 5. There is mild wall thickening and edema of the colon especially the splenic flexure of the colon and proximal descending colon compatible with reactive changes to the pancreatitis or mild colitis. Radiation Dose CTDIVOL = (mGy): DLP = 4427.08 (mGy-cm)
[2019-08-02] MEDS: iohexol 300 mg/mL 100 mL Btl IV (17:49)
[2019-08-02 18:01] LABS: Glucose Point of Care 126 mg/dL (70-110)
[2019-08-02 18:18] LABS: Hepatitis A Antibody IgM. Non-Reactive (Nonreactive); Hepatitis B Core IgM Non-Reactive (Nonreactive); Hepatitis B Surface Antigen. Non-Reactive (Nonreactive); Hepatitis C Virus Antibody Non-Reactive (Nonreactive)
[2019-08-02] MEDS: metoprolol tartrate 50 mg Tablet PO (18:37)
[2019-08-02] MEDS: ranolazine (12HR) 500 mg Tablet PO (18:38)
[2019-08-02 19:53] LABS: HIV 1 & 2 Antibody Non-Reactive (Non-Reactiv); HIV 1 & 2 Antigen Non-Reactive (Non-Reactiv)
[2019-08-02] MEDS: sennosides 8.6 mg Tablet 17.2 MG PO (20:37)
[2019-08-02] MEDS: LORazepam 2 mg Tablet PO (20:42)
[2019-08-02 21:19] LABS: Glucose Point of Care 121 mg/dL (70-110)
[2019-08-02] MEDS: trazodone 100 mg Tablet 200 MG PO (22:26)
[2019-08-03] VITALS (10 sets, daily range): BP systolic 117–163; BP diastolic 69–93; PULSE 87–124; RESP 18–22; TEMP 36.6–37; O2SAT 92–100; BMI 30.4
[2019-08-03] MEDS: sodium chloride 0.9% 1,000 ML 100 ML IV ×3 (00:16→15:20)
[2019-08-03] MEDS: LORazepam 2 mg Tablet PO ×5 (00:18→20:53)
[2019-08-03 00:21] LABS: Glucose Point of Care 118 mg/dL (70-110)
[2019-08-03 06:43] LABS: Glucose Point of Care 141 mg/dL (70-110)
[2019-08-03 06:49] LABS: INR 1.25 (0.8-1.2)
[2019-08-03 07:13] LABS: Alanine Aminotransferase 64 U/L (0-41); Albumin Level 2.9 g/dL (3.5-5.2); Alkaline Phosphatase 606 IU/L (40-130); Aspartate Amino Transferase 110 U/L (0-40); Blood Urea Nitrogen 6 mg/dL (6-20); Calcium 8.4 mg/dL (8.5-10.5); Chloride 93 mmol/L (98-107); Globulin 3.3 g/dL (1.3-4.6); Glomerular Filtration Rate 79.1 mL/min (90-130); Glucose 136 mg/dL (65-115); Sodium 130 mmol/L (136-145); Total Protein 6.2 g/dL (6.6-8.7)
[2019-08-03 07:14] LABS: Carbon Dioxide 6 mmol/L (22-29)
[2019-08-03 08:43] LABS: Basophils % 0.1 %; Eosinophils % 0.1 %; Hematocrit 35.1 % (42.0-52.0); Hemoglobin 11.6 g/dL (11.7-16.6); Lymphocytes # 1.1 10^3/uL (0.8-4.8); Lymphocytes % 13.4 %; Mean Corpuscular Hemoglobin 29.7 pg (28.0-34.0); Mean Platelet Volume 12.2 fL (7.4-10.4); Monocytes # 0.9 10^3/uL (0.2-0.9); Monocytes % 10.1 %; Neutrophils # 6.4 10^3/uL (1.8-7.7); Neutrophils % 75.4 %; Nucleated Red Blood Cells % 0.2 %; Platelet Count 85 10^3/cmm (130-400); Red Cell Distribution Width 16.7 % (12.1-15.1); White Blood Count 8.5 10^3/uL (4.0-10.0)
[2019-08-03] MEDS: aspirin 81 mg EC Tablet PO (08:56)
[2019-08-03] MEDS: isosorbide mononitrate ER 60 mg Tablet PO (08:56)
[2019-08-03] MEDS: clopidogrel 75 mg Tablet PO (08:56)
[2019-08-03] MEDS: folic acid 1 mg Tablet PO (08:56)
[2019-08-03] MEDS: thiamine 100 mg Tablet PO (08:57)
[2019-08-03] MEDS: metoprolol tartrate 50 mg Tablet PO ×2 (08:57→18:08)
[2019-08-03] MEDS: NIFEdipine ER (24 hr) 30 mg Tablet 90 MG PO (08:57)
[2019-08-03] MEDS: PARoxetine 20 mg Tablet PO (08:57)
[2019-08-03] MEDS: lisinopril 20 mg Tablet 40 MG PO (08:57)
[2019-08-03] MEDS: multivitamin therapeutic Tablet 1 TAB PO (08:58)
[2019-08-03] MEDS: ranolazine (12HR) 500 mg Tablet PO ×2 (08:59→18:08)
[2019-08-03] MEDS: cefTRIAXone 1,000 MG in sodium chloride 0.9% (plus) 50 ML 100 MG IV (11:12)
[2019-08-03 11:17] LABS: Glucose Point of Care 100 mg/dL (70-110)
[2019-08-03 11:46] LABS: Lipase 167 U/L (13-60)
[2019-08-03] MEDS: potassium chloride premix 40 MEQ/100 ML PREMIX 25 MEQ IV (11:48)
[2019-08-03] MEDS: sodium chloride 0.9% 500 ML 999 ML IV (11:49)
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
--- NOTE | 2019-08-03 14:48 | PC.NURSE ---
Pt asked again about food and was told he could have ice chips and the plan to hydrate him with IV fluids and reassess with the labs in the morning.
[2019-08-03 17:29] LABS: Glucose Point of Care 137 mg/dL (70-110)
[2019-08-03] MEDS: trazodone 100 mg Tablet 200 MG PO (20:53)
[2019-08-03] MEDS: sennosides 8.6 mg Tablet 17.2 MG PO (20:53)
[2019-08-03 21:26] LABS: Glucose Point of Care 133 mg/dL (70-110)
[2019-08-03] MEDS: sodium chloride 0.9% 1,000 ML 150 ML IV (21:39)
--- NOTE | 2019-08-03 22:07 | PC.CHAP ---
Pastoral Care Encounter/Spiritual Assessment Type of Contact [] Declined vp analysis visit [] Patient/Family/Request visit [] Outpatient visit [] Follow-up visit [] Physician referral [] Code/Alert [] Routine visit [] Staff referral [] Actively dying [X] Patient sleeping [] Family support [] [] Out of room [] Palliative care [] [] Receiving care in room [] Pre-surgical visit [] Trauma [] Long length of stay [] ICU visit [] Other: Relational/Emotional Strength [] Patient feels connected with others/family/visitors/staff [] Distress [] Loneliness/isolation [] Abandonment Spirituality of Patient [] Person of Cece [] Attends Pentecostal of their Cece [] Believes in Prayer [] Reads Bible or Judaism materials [] There are Spiritual issues to be addressed Obstetric Assistant Interventions [] Prayer [] Active listening [] Non-anxious presence [] Spiritual/emotional support [] Crisis/trauma care [] Spiritual counseling [] Bereavement support [] Provided bereavement packet [] Provided Bible/devotional materials [] Provided toy/stuffed animal, coloring book to patient or family member [] Provided Communion [] Anointing/[place] [] Salvation [] Completed spiritual assessment [] Other: Impact on Illness or Injury [] Angry [] Fearful [] Anxious [] Often cries [] Exhaustion [] Unable to work [] Unable to attend muslim [] Unable to walk/stand [] Unable to read [] Unable to drive [] Unable to eat/drink [] Unable to sleep [] Unable to be with family [] Patient intubated [] Other: Summary PATIENT SLEEPING, NEED FOLLOWUP NEXT DAY Time spent with patient
[2019-08-04] VITALS (47 sets, daily range): BP systolic 85–223; BP diastolic 47–184; PULSE 78–139; RESP 22–67; TEMP 36.7–37.2; O2SAT 84–100
[2019-08-04] MEDS: LORazepam 2 mg Tablet PO ×2 (00:34→04:22)
[2019-08-04] MEDS: sodium chloride 0.9% 1,000 ML 150 ML IV (04:22)
[2019-08-04] MEDS: metoprolol tartrate 50 mg Tablet PO (06:26)
[2019-08-04 06:40] LABS: Glucose Point of Care 126 mg/dL (70-110)
[2019-08-04 07:41] LABS: Basophils % 0.2 %; Eosinophils % 0.1 %; Hematocrit 36.6 % (42.0-52.0); Hemoglobin 12.2 g/dL (11.7-16.6); Lymphocytes # 0.9 10^3/uL (0.8-4.8); Lymphocytes % 8.7 %; Mean Corpuscular HGB Conc 33.3 g/dL (30.0-36.0); Mean Corpuscular Hemoglobin 29.9 pg (28.0-34.0); Mean Corpuscular Volume 89.7 fL (80-94); Mean Platelet Volume 11.1 fL (7.4-10.4); Monocytes # 0.7 10^3/uL (0.2-0.9); Monocytes % 7.2 %; Neutrophils # 8.2 10^3/uL (1.8-7.7); Neutrophils % 81.9 %; Nucleated Red Blood Cells % 0.2 %; Platelet Count 115 10^3/cmm (130-400); Red Blood Count 4.08 10^6/uL (4.1-5.3); Red Cell Distribution Width 17.2 % (12.1-15.1)
--- NOTE | 2019-08-04 07:43 | PC.NURSE ---
Patient is very anxious and is thrashing around his bed. He cannot sit still and keeps pulling at his sheets and his bipap mask on. He is breathing 36 times a minute and pulse is in the 120's. Dr Gayle was called and made a bedside assessment. Orders for full face bipap NOW and patrick to be placed. Respiratory called and bipap placed on.
[2019-08-04 07:48] LABS: Alanine Aminotransferase 85 U/L (0-41); Albumin Level 2.9 g/dL (3.5-5.2); Alkaline Phosphatase 817 IU/L (40-130); Anion Gap 32.3 (5-19); Blood Urea Nitrogen 3 mg/dL (6-20); Calcium 8.8 mg/dL (8.5-10.5); Chloride 97 mmol/L (98-107); Globulin 3.8 g/dL (1.3-4.6); Glomerular Filtration Rate 142.6 mL/min (90-130); Glucose 134 mg/dL (65-115); Lipase 154 U/L (13-60); Magnesium 1.9 mg/dL (1.7-2.3); Potassium 3.3 mmol/L (3.5-5.1); Sodium 131 mmol/L (136-145); Total Bilirubin 3.5 mg/dL (0.15-1.2); Total Protein 6.7 g/dL (6.6-8.7)
--- NOTE | 2019-08-04 07:53 | XRR_ITS ---
PROCEDURE INFORMATION: Exam: XR Chest, 1 View Exam date and time: 08/04/2019 7:53 AM Age: 49 years old Clinical indication: Shortness of breath; Additional info: Dyspnea TECHNIQUE: Imaging protocol: XR of the chest Views: 1 view. COMPARISON: CR Chest 1 [place] [id number] 03/28/2017 1:28 PM FINDINGS: Lungs: Bilateral perihilar infiltrates worrisome for pulmonary edema. Pleural space: Unremarkable. No pleural effusion. No pneumothorax. Heart/Mediastinum: Unremarkable. No cardiomegaly. Bones/joints: Unremarkable. XR/XR chest 1V portable [id number] IMPRESSION: Bilateral perihilar infiltrates worrisome for pulmonary edema.
--- NOTE | 2019-08-04 07:54 | CTR_ITS ---
PROCEDURE INFORMATION: Exam: CT Abdomen And Pelvis Without Contrast Exam date and time: 08/04/2019 8:03 AM Age: 49 years old Clinical indication: Prior surgery; Surgery date: 6+ months; Surgery type: Gb; Patient HX: Pancreatitis, hepatic lesion, constipation; Additional info: Abdominal pain TECHNIQUE: Imaging protocol: Computed tomography of the abdomen and pelvis without contrast. Total DLP: 1307.75 mGy-cm Radiation optimization: All CT scans at this facility use at least one of these dose optimization techniques: automated exposure control; mA and/or kV adjustment per patient size (includes targeted exams where dose is matched to clinical indication); or iterative reconstruction. COMPARISON: CT abdomen pelvis wo/w [id number] 08/02/2019 5:41 PM FINDINGS: Tubes, catheters and devices: NG tube descends into stomach. Left groin central line in place. Lungs: Bilateral perihilar pulmonary consolidation/infiltrates worrisome for pulmonary edema. Liver: Fatty liver. Multiple rounded the masses throughout liver consistent with hepatic metastatic disease, relatively unchanged. Gallbladder and bile ducts: Prior cholecystectomy. Pancreas: 3 cm area of relative hypodensity along superior aspect of pancreatic body appears relatively unchanged and may represent focal tumor (series 3, axial image 26). The smaller pancreatic head region hypodense area is less apparent today. Spleen: Normal. No splenomegaly. Adrenals: Normal. No mass. Kidneys and ureters: Normal. No hydronephrosis. Stomach and bowel: Unremarkable as visualized. No bowel dilatation/obstruction evident. Appendix: No evidence of appendicitis. Intraperitoneal space: 2-3 cm sized areas of nodularity about colonic splenic flexure region are unchanged and may represent tumor spread/peritoneal carcinomatosis (series 3, axial image 44). Vasculature: Unremarkable. No abdominal aortic aneurysm. Lymph nodes: Unremarkable. No enlarged lymph nodes. Bladder: [place] catheter in place with decompressed urinary bladder. Reproductive: Unremarkable as visualized. Bones/joints: Unremarkable. No acute fracture. Soft tissues: Unremarkable. Other findings: Study somewhat degraded by patient motion. CT/CT abdomen pelvis wo con [id number] IMPRESSION: 1.) Bilateral perihilar infiltrates worrisome for pulmonary edema. 2.) Fatty liver with metastatic disease, relatively unchanged. 3.)3 cm area of relative hypodensity along superior aspect of pancreatic body appears relatively unchanged and may represent focal tumor (series 3, axial image 26). 4.) 2-3 cm sized areas of nodularity about colonic splenic flexure region are unchanged and may represent tumor spread/peritoneal carcinomatosis (series 3, axial image 44). Radiation Dose CTDIVOL = (mGy): DLP = 1307.75 (mGy-cm)
[2019-08-04 08:00] LABS: Aspartate Amino Transferase 225 U/L (0-40)
[2019-08-04 08:02] LABS: Carbon Dioxide 5 mmol/L (22-29)
[2019-08-04] MEDS: LORazepam 2 mg/mL INJ 1 mL 1 MG IVP ×2 (08:05→09:29)
[2019-08-04 08:18] LABS: INR 1.26 (0.8-1.2)
[2019-08-04 08:49] LABS: ABG PH Result 7.26 (7.35-7.45); Alveolar-Arterial Oxygen Gradi 46.6 mmHg (5-10); Arterial Blood Gas Hematocrit 39.9 % (42-52); Blood Gas Sample Site Femoral, left; Blood Gas Sample Type Arterial; Carboxyhemoglobin 0.5 %THgb (0.4-20.1); HCO3 ABG 5.3 mmol/L (22-26); HGB O2 Sat 96.7 % (95-100); Ionized Calcium Level - ABG 1.2 mmol/L (1.1-1.4); Oxygen Device BIPAP; Oxygen Saturation ABG 98.2; Potassium Level - ABG 3.2 mmol/L (3.5-5.0)
[2019-08-04 08:50] LABS: ABG PCO2 11.8 mmHg (35-45)
[2019-08-04] MEDS: sodium chloride 0.9% 1,000 ML 999 ML IV (09:28)
[2019-08-04] MEDS: sodium bicarbonate 150 MEQ in dextrose 5% 1,000 ML IV ×2 (09:29→18:23)
[2019-08-04] MEDS: LORazepam 2 mg/mL INJ 1 mL IVP (09:44)
[2019-08-04] MEDS: potassium chloride premix 40 MEQ/100 ML PREMIX 25 MEQ IV ×2 (11:16→15:53)
[2019-08-04] MEDS: morphine 4 mg/mL SDV 1 mL 2 MG IVP (11:55)
[2019-08-04] MEDS: metroNIDAZOLE IV 500 MG/100 ML PREMIX 100 MG IV ×3 (12:19→20:42)
--- NOTE | 2019-08-04 12:25 | PC.NURSE ---
recieved from floor this am cool dusky and mottled all extremities at this time agitated moving restless one on one sitter at bedside blood pressure unable to obtain accurate only one iv sit left upper arm started on fluid bolus and bicarb gtt at this time . resperations rapid and shallow and laborded o2 in place at this time monitor shows stach sats around 90. continue to be able to start another iv or obtain adequate , acurate blood pressure as such poor purfusion ot all extrimites and trunk noted ativan given prior and morphine started on precidex due to extreme agitation noted.
--- NOTE | 2019-08-04 12:26 | PM.PN ---
Subjective Subjective: Interval history: Called this morning to evaluate the patient as he was breathing faster, confused. Some mottling in his lower extremities. Medications: Reviewed: Yes Vitals/I&O/Wt Last Vital Signs Temp 99.0 F 08/04/19 12:22 Pulse 127 H 08/04/19 12:22 Resp 43 H 08/04/19 12:22 BP 180/87 08/04/19 12:22 Pulse Ox 84 L 08/04/19 12:22 08/03/19 08/04/19 08/04/19 22:59 06:59 14:59 Intake Total 1568.333 / 2576.666 1000 / 3576.666 Output Total 850 / 2500 2150 / 4650 600 / 600 Balance 718.333 / 76.666 -1150 / -1073.334 -600 / -600 Weight last 48 hrs Weight 94.529 kg Weight 93.576 kg Physical Exam Narrative: EXAM NARRATIVE: General exam obvious respiratory distress Cardiovascular tachycardic Lungs clear Abdomen is soft, bruising noted bilateral sides Extremities no cyanosis clubbing. Scarring, amputation site right arm noted Data : 08/04/19 07:25 08/04/19 07:25 Micro: Microbiology 08/02/19 11:29 Urine Culture - Final Urine,Clean Catch 08/03/19 05:15 Urine Culture - Preliminary Urine,Voided 08/02/19 11:29 Chlamydia trachomatis ([facility]ONILA) - Final Urine Random Neisseria gonorrhoeae ([facility]ONILA) - Final 08/02/19 10:39 Blood Culture - Preliminary Blood NEGATIVE TO DATE A&P Assessment and plan (1) Alcoholic ketoacidosis: Acidosis has worsened significantly. ABG has been performed which confirms this. I have moved him to the ICU, and started bicarbonate. Precedex secondary to agitation Chest x-ray has been performed which demonstrates bilateral infiltrates possible ARDS. Doubt fluid overload with his clinical scenario Status: Acute Code(s): E87.2 - Acidosis (2) Acute UTI (urinary tract infection): Initially on Rocephin Chlamydia, GC negative. Status: Acute Code(s): N39.0 - Urinary tract infection, site not specified (3) Pancreatic mass: Also with possible pancreatitis. Secondary to worsening have ordered repeat CT scan. Secondary to severity of illness Rocephin changed to cefepime, Flagyl Note that initial CT demonstrates pancreatic head mass, larger than previous, increasing metastatic liver disease. I have ordered a repeat noncontrast CT, but at this point with his respiratory condition he is unstable to go to the CT scanner. Status: Acute Code(s): K86.89 - Other specified diseases of pancreas (4) Hepatic lesion: Consistent with metastatic disease Status: Acute Code(s): K76.9 - Liver disease, unspecified (5) Constipation: Resolved Status: Acute Code(s): K59.00 - Constipation, unspecified (6) Dehydration: Resolved Status: Acute Code(s): E86.0 - Dehydration Additional A&P Information Acute respiratory failure, with difficulty compensating for severe metabolic acidosis. Some evidence on chest x-ray of development of ARDS. Alcoholism with concern for alcohol withdrawal: Continue Ativan, Precedex Hypokalemia, supplement Hypertension. Hold meds as he is clinically deteriorated Transaminitis, liver function tests are worsening, including bilirubin, which may herald hepatic failure Hyperlipidemia. Hold statin secondary to transaminitis Insomnia: Continue home trazodone Depression: Continue home paroxetine Chronic pain on daily opioids. 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 Likely secondary to binge drinking and alcoholic liver disease. Hold statin Thrombocytopenia: Likely secondary to alcoholism, repeat level shows stability Diabetes mellitus type 2: We will place on sliding scale insulin DVT prophylaxis: SCDs, no pharmacologic prophylaxis due to thrombocytopenia Secondary to his significant clinical deterioration, it is likely he will need endotracheal intubation. I think his chance for any meaningful outcome is extremely poor considering his worsening liver function tests, severe acidosis, pancreatitis. His short-term prognosis is also very poor considering pancreatic head mass, evidence of hepatic metastasis, and elevated CA-19-9 level. I have discussed this in depth with his sister, who will be talking to family members to decide whether she wants further aggressive care such as endotracheal intubation, CPR, etc. At this point I am awaiting her directive, and continuing supportive care. Attestations Medical Necessity Statement*: Needs continued care in the ICU secondary to severe metabolic acidosis Critical Care Time: Currently approximately 75 minutes of ICU time spent reviewing ABG, talking with family, reviewing medications, chest x-ray, etc. In this very ill white male. Coding Level of Care Code Acute Box Blank Machine Feeder for Chg Fwd Diagnoses Alcoholic ketoacidosis E87.2 Acute UTI (urinary tract infection) N39.0 Pancreatic mass K86.89 Hepatic lesion K76.9 Constipation K59.00 Dehydration E86.0
--- NOTE | 2019-08-04 12:31 | PC.NURSE ---
iv restarted in left ij per er staff and at this time anitbiotics resumed
[2019-08-04 13:35] LABS: Anion Gap 24.2 (5-19); Blood Urea Nitrogen 3 mg/dL (6-20); Calcium 8.2 mg/dL (8.5-10.5); Chloride 101 mmol/L (98-107); Glomerular Filtration Rate 119.4 mL/min (90-130); Glucose 156 mg/dL (65-115); Osmolality Calculated 269 mOsm/kg (285-295); Potassium 3.2 mmol/L (3.5-5.1); Sodium 130 mmol/L (136-145)
[2019-08-04 13:54] LABS: Carbon Dioxide 8 mmol/L (22-29)
--- NOTE | 2019-08-04 13:54 | PM.EVENT ---
Event Note Event Note: Patient with worsening respiratory failure. Emergently intubated. I had the emergency department physician come and do this. Patient received 150 mg of succinylcholine, 20 mg of etomidate and was intubated with an 8-0 endotracheal tube 24 cm at the lip. This was directly visualized using a glide scope, color change noted. Chest x-ray pending.
--- NOTE | 2019-08-04 13:56 | XRR_ITS ---
PROCEDURE INFORMATION: Exam: XR Chest, 1 View Exam date and time: 08/04/2019 1:58 PM Age: 49 years old Clinical indication: Device placement; Ett placement (vent status); Additional info: Post intubation TECHNIQUE: Imaging protocol: XR of the chest Views: 1 view. COMPARISON: CR (CHEST, ) 08/04/2019 11:43 AM FINDINGS: Tubes, catheters and devices: ET tube tip lies 2-3 cm above dianna. NG tube descends into stomach. Lungs: Increasing bilateral pulmonary infiltrates worrisome for pulmonary edema. Pleural space: Unremarkable. No pleural effusion. No pneumothorax. Heart/Mediastinum: Unremarkable. No cardiomegaly. Bones/joints: Unremarkable. XR/XR chest 1V portable [id number] IMPRESSION: Support lines and tubes appear well-positioned. Increasing bilateral infiltrates worrisome for pulmonary edema.
[2019-08-04] MEDS: succinylcholine 20 mg/mL SDV 10mL 200 MG (15:40)
[2019-08-04] MEDS: etomidate 10 ML 10 MG (15:41)
[2019-08-04] MEDS: lidocaine 1% INJ 20 mL INJECTION (15:41)
[2019-08-04] MEDS: sodium chloride 0.9% 1,000 ML 100 ML IV (15:42)
[2019-08-04 16:06] LABS: ABG PH Result 7.24 (7.35-7.45); Arterial Blood Gas Hematocrit 39.5 % (42-52); Base Excess ABG -15.3 mmol/L (-2.0-2.0); Blood Gas Sample Site Femoral, left; Blood Gas Sample Type Arterial; Blood Gas Tidal Volume 0.45; Carboxyhemoglobin 0.6 %THgb (0.4-20.1); HCO3 ABG 10.3 mmol/L (22-26); HGB O2 Sat 96.3 % (95-100); Ionized Calcium Level - ABG 1.2 mmol/L (1.1-1.4); Methemoglobin 0.6 % (0.4-1.5); Oxygen Device VENT; Oxygen Saturation ABG 97.5; Potassium Level - ABG 3.5 mmol/L (3.5-5.0); Total Hemoglobin 12.9 g/dL (14-18)
--- NOTE | 2019-08-04 16:46 | PM.EVENT ---
Event Note Event Note: Central line put in emergently earlier today secondary to need for IV access, pressors. Patient was prepped and draped in a sterile fashion, and sedated on the ventilator. Introducer needle was inserted right groin area, and return of dark blood was noted. Wire was threaded, scalpel used to incise skin, introducer placed but would not feed. Several attempts made. Site was abandoned and pressure applied for 10 minutes. Similar procedure left side, introducer fed easily. Central lumen placed, sutured and without complication, which easily flushed. No complications noted. Additional 30 minutes of ICU care was spent.
[2019-08-04] MEDS: cefepime 2,000 MG in sodium chloride 0.9% (plus) 50 ML 100 MG IV (17:50)
--- NOTE | 2019-08-04 19:51 | PM.EVENT ---
Event Note Event Note: Discussed with family CODE STATUS again. They do not want CPR, dialysis. We will continue current therapies. Discussed with multiple sisters(4), who notified me they are the appropriate decision makers.
[2019-08-04 19:54] LABS: Glucose Point of Care 213 mg/dL (70-110)
[2019-08-04 19:54] LABS: Glucose Point of Care 183 mg/dL (70-110)
[2019-08-04] MEDS: propofol 1,000 MG/100 ML INJ 34 MG IV ×2 (19:58→22:39)
[2019-08-04 20:31] LABS: Anion Gap 23.8 (5-19); Blood Urea Nitrogen 7 mg/dL (6-20); Calcium 7.9 mg/dL (8.5-10.5); Carbon Dioxide 12 mmol/L (22-29); Chloride 101 mmol/L (98-107); Glomerular Filtration Rate 58.4 mL/min (90-130); Glucose 220 mg/dL (65-115); Osmolality Calculated 279 mOsm/kg (285-295); Potassium 3.8 mmol/L (3.5-5.1); Sodium 133 mmol/L (136-145)
[2019-08-05] VITALS (36 sets, daily range): BP systolic 85–185; BP diastolic 53–99; PULSE 76–94; RESP 14–30; TEMP 36.7–37.2; O2SAT 91–100; BMI 30.7
[2019-08-05] MEDS: cefepime 2,000 MG in sodium chloride 0.9% (plus) 50 ML 100 MG IV (01:54)
[2019-08-05] MEDS: sodium bicarbonate 150 MEQ in dextrose 5% 1,000 ML IV ×2 (02:47→09:01)
[2019-08-05] MEDS: propofol 1,000 MG/100 ML INJ 34 MG IV ×5 (04:44→15:22)
[2019-08-05 05:09] LABS: Basophils % 0.3 %; Eosinophils % 0.5 %; Hematocrit 28.2 % (42.0-52.0); Hemoglobin 10.3 g/dL (11.7-16.6); Lymphocytes # 1.1 10^3/uL (0.8-4.8); Lymphocytes % 13.1 %; Mean Corpuscular HGB Conc 36.5 g/dL (30.0-36.0); Mean Corpuscular Hemoglobin 31.3 pg (28.0-34.0); Mean Corpuscular Volume 85.7 fL (80-94); Mean Platelet Volume 11.4 fL (7.4-10.4); Monocytes # 0.7 10^3/uL (0.2-0.9); Monocytes % 8.9 %; Neutrophils % 75.3 %; Nucleated Red Blood Cells % 0 %; Platelet Count 119 10^3/cmm (130-400); Red Blood Count 3.29 10^6/uL (4.1-5.3); Red Cell Distribution Width 16.5 % (12.1-15.1)
[2019-08-05 05:28] LABS: INR 1.14 (0.8-1.2)
[2019-08-05 05:33] LABS: Alanine Aminotransferase 61 U/L (0-41); Albumin Level 2.2 g/dL (3.5-5.2); Alkaline Phosphatase 553 IU/L (40-130); Anion Gap 20.1 (5-19); Aspartate Amino Transferase 164 U/L (0-40); Blood Urea Nitrogen 11 mg/dL (6-20); Carbon Dioxide 17 mmol/L (22-29); Chloride 99 mmol/L (98-107); Glomerular Filtration Rate 33.6 mL/min (90-130); Glucose 256 mg/dL (65-115); Potassium 3.1 mmol/L (3.5-5.1); Sodium 133 mmol/L (136-145); Total Bilirubin 1.8 mg/dL (0.15-1.2); Total Protein 5.2 g/dL (6.6-8.7)
[2019-08-05 07:24] LABS: Glucose Point of Care 261 mg/dL (70-110)
[2019-08-05] MEDS: metroNIDAZOLE IV 500 MG/100 ML PREMIX 100 MG IV ×2 (07:29→12:11)
[2019-08-05] MEDS: multivitamin therapeutic Tablet 1 TAB PO (08:49)
[2019-08-05] MEDS: thiamine 100 mg Tablet PO (08:49)
[2019-08-05] MEDS: folic acid 1 mg Tablet PO (08:49)
[2019-08-05 11:34] LABS: Glucose Point of Care 149 mg/dL (70-110)
--- NOTE | 2019-08-05 14:41 | PC.CHAP ---
Pastoral Care Encounter/Spiritual Assessment Type of Contact [] Declined basin cleaner visit [x] Patient/Family/Request visit [] Outpatient visit [] Follow-up visit [] Physician referral [] Code/Alert [x] Routine visit [] Staff referral [] Actively dying [] Patient sleeping [x] Family support [] [] Out of room [] Palliative care [] [] Receiving care in room [] Pre-surgical visit [] Trauma [] Long length of stay [x] ICU visit [] Other: Relational/Emotional Strength [x] Patient feels connected with others/family/visitors/staff [] Distress [] Loneliness/isolation [] Abandonment Spirituality of Patient [] Person of Cece [] Attends Mandaeism of their Cece [] Believes in Prayer [] Reads Bible or Caodaism materials [] There are Spiritual issues to be addressed Director Of Healthcare Systems Interventions [x] Prayer [x] Active listening [x] Non-anxious presence [x] Spiritual/emotional support [] Crisis/trauma care [x] Spiritual counseling [] Bereavement support [] Provided bereavement packet [] Provided Bible/devotional materials [] Provided toy/stuffed animal, coloring book to patient or family member [] Provided Communion [] Anointing/[place] [] Salvation [x] Completed spiritual assessment [] Other: Impact on Illness or Injury [] Angry [] Fearful [] Anxious [] Often cries [] Exhaustion [x] Unable to work [x] Unable to attend yazidi [x] Unable to walk/stand [x] Unable to read [x] Unable to drive [x] Unable to eat/drink [] Unable to sleep [] Unable to be with family [x] Patient intubated [x] Other: Patient being taken off life support today Summary Director Of Healthcare Systems asked family members if they would like prayer and they stated they would. Family member stated that patient was going to be taken off life support today. Family asked for prayers for the whole family because the patient is the brother and they had already lost both their parents in the last five years and the family has not healed emotionally from that. Family member asked for prayer for peace as they go throough this process. Director Of Healthcare Systems prayed with patient and two family members. Director Of Healthcare Systems informed the family members that if they wanted a basin cleaner present while the machines were shut off that they could request the nurses contact the chaplains. Patient visit was conducted by Chaplain Mehul Franklin. Time spent with patient 30 minutes
--- NOTE | 2019-08-05 15:09 | PM.PN ---
Subjective Subjective: Interval history: This morning patient continues to be intubated, sedated. levophed weaned off this am. LFTs continue to be deranged. Cr worsening at 2.1. T.bili 1.8. CXR with B/L diffuse infiltrates. Medications: Reviewed: Yes Vitals/I&O/Wt Last Vital Signs Temp 98.1 F 08/05/19 07:30 Pulse 77 08/05/19 13:00 Resp 30 H 08/05/19 13:51 BP 159/89 08/05/19 13:00 Pulse Ox 100 08/05/19 13:00 08/05/19 08/05/19 08/05/19 06:59 14:59 22:59 Intake Total 1448.9 / 3049.233 1408.823 / 1408.823 Output Total 200 / 1700 Balance 1248.9 / 4849.997 4430.823 / 1408.823 Weight last 48 hrs Weight 94.489 kg Weight 94.529 kg Physical Exam Narrative: EXAM NARRATIVE: GEN: Intubated, sedated HEENT: B/L pupils mid dilated, sluggish reaction CVS: S1S2 N RS: CTA B/L Abd: Soft, nt/nd , bs+ SHOW JUMPING INSTRUCTOR: intubated, sedated Data : 08/05/19 04:49 08/05/19 04:49 Micro: Microbiology 08/04/19 15:10 Gram Stain - Final Sputum - Endotracheal Tube Aspirate Sputum Culture - Preliminary 08/03/19 05:15 Urine Culture - Final Urine,Voided A&P Assessment and plan (1) Alcoholic ketoacidosis: Patient had worsening metabolic acidosis worsened significantly over the course of 08/03 which eventually required him to be intubated and currently on mechanical ventilation. Chest x-ray demonstrates bilateral increasing infiltrates likely to represent ARDS. Doubt fluid overload with his clinical scenario Status: Acute Code(s): E87.2 - Acidosis (2) Acute UTI (urinary tract infection): Initially on Rocephin Chlamydia, GC negative. Status: Acute Code(s): N39.0 - Urinary tract infection, site not specified (3) Pancreatic mass: Also with possible pancreatitis. Repeat CT with multiple unchanged hepatic metastasis and possible peritoneal carcinamatomsis at the splenic flexure. Secondary to severity of illness Rocephin changed to cefepime, Flagyl Status: Acute Code(s): K86.89 - Other specified diseases of pancreas (4) Hepatic lesion: Consistent with metastatic disease Status: Acute Code(s): K76.9 - Liver disease, unspecified (5) Constipation: Resolved Status: Acute Code(s): K59.00 - Constipation, unspecified (6) Dehydration: Resolved Status: Acute Code(s): E86.0 - Dehydration Additional A&P Information Acute respiratory failure, with difficulty compensating for severe metabolic acidosis. Some evidence on chest x-ray of development of ARDS. Alcoholism with concern for alcohol withdrawal: Continue Precedex Hypokalemia, supplement Hypertension. Hold meds as he is clinically deteriorated, on levophed until this morning Transaminitis, liver function tests are worsening, which may herald hepatic failure Hyperlipidemia. Hold statin secondary to transaminitis Chronic pain on daily opioids. 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 Since his chance for any meaningful outcome is extremely poor considering his worsening liver function tests, severe acidosis, pancreatitis. His short-term prognosis is also very poor considering pancreatic head mass, evidence of hepatic metastasis, and elevated CA-19-9 level. This was discussed with his sister at bedside who is waiting to talk to rest of the family regarding next steps, it appears they are leaning towards extubation, in addition to already DNR status and possibility of comfort care. Attestations Medical Necessity Statement*: metabolic disease, pancreatitis, respiratory failure Coding Level of Care Code Acute Covering Machine Operator for g Fwd Diagnoses Alcoholic ketoacidosis E87.2 Acute UTI (urinary tract infection) N39.0 Pancreatic mass K86.89 Hepatic lesion K76.9 Constipation K59.00 Dehydration E86.0
[2019-08-05 16:42] LABS: Glucose Point of Care 184 mg/dL (70-110)
--- NOTE | 2019-08-05 18:07 | PM.EVENT ---
Event Note Event Note: Spoke to patient's sister again who states they have conferred with rest of the family and at this time would want to extubate patient and move to make him comfort care. They understand that this would mean a DNR/DNI status, with focus purely on comfort with as needed pain and anxiety medication, which may further suppress the respiratory drive and eventual demise. No further escalation of care is also ordered. In keeping with these directives,w ill move to extubate patient and use morphine and ativan for air hunger. May transfer to floors to a quiet room. Event Notes Attestations Time Spent in Patient Care: 16 - 35 minutes
[2019-08-05] MEDS: morphine 4 mg/mL SDV 1 mL 1 MG IVP ×2 (18:34→22:16)
--- NOTE | 2019-08-05 18:38 | PC.NURSE ---
Patient extubated to room air for comfort measures. Diprivan and bicarb gtt d/c. Continued precedex. Family at bedside.
--- NOTE | 2019-08-05 18:40 | PC.RESP ---
PT EXTUBATED TP ROOMAIR. HR 97
[2019-08-05] MEDS: LORazepam 2 mg/mL INJ 1 mL IVP (22:10)
[2019-08-06] VITALS (10 sets, daily range): BP systolic 83–139; BP diastolic 59–86; PULSE 93–114; RESP 18–26; TEMP 36.9–37.6; O2SAT 86–96
[2019-08-06] MEDS: morphine 4 mg/mL SDV 1 mL 1 MG IVP ×2 (02:37→10:37)
[2019-08-06] MEDS: LORazepam 2 mg/mL INJ 1 mL IVP ×4 (02:39→23:21)
[2019-08-06] MEDS: pantoprazole DR 40 mg Tablet PO (11:17)
[2019-08-06] MEDS: morphine 4 mg/mL SDV 1 mL IVP ×4 (12:35→23:20)
[2019-08-06] MEDS: tizanidine 4 mg Tablet PO (12:35)
--- NOTE | 2019-08-06 12:50 | PM.PN ---
Subjective Subjective: Interval history: transferred to floors yesterday. Awake, minimally conversant, still with noticeable tachypnea, c/o pain. wishes to eat when able. Passed bedside swallow assessment today Medications: Reviewed: Yes Vitals/I&O/Wt Last Vital Signs Temp 99.1 F 08/06/19 11:20 Pulse 112 H 08/06/19 11:20 Resp 20 H 08/06/19 12:35 BP 139/86 08/06/19 11:20 Pulse Ox 91 08/06/19 11:20 08/05/19 08/06/19 08/06/19 22:59 06:59 14:59 Intake Total 1430.82 / 2939.643 1140 / 1140 Output Total 1100 / 1100 Balance 1430.82 / 2939.643 -1100 / 3219.077 5667 / 1140 Weight last 48 hrs Weight 94.489 kg Physical Exam Narrative: EXAM NARRATIVE: GEN: drowsy, lethargic, however wakes up to calling name and attempts to answer simple questions CVS: S1S2 N RS: CTA B/L Abd: Soft, nt/nd , bs+ ANESTHESIOLOGIST ASSISTANT: lethargic, shifting in bed, moves all extremities in bed, was pulling at patrick earlier this mornign Data : 08/05/19 04:49 08/05/19 04:49 Micro: Microbiology 08/04/19 15:10 Gram Stain - Final Sputum - Endotracheal Tube Aspirate Sputum Culture - Preliminary 08/03/19 05:15 Urine Culture - Final Urine,Voided A&P Assessment and plan (1) Alcoholic ketoacidosis: Patient had worsening metabolic acidosis worsened significantly over the course of 08/03 which eventually required him to be intubated Chest x-ray demonstrates bilateral increasing infiltrates likely to represent ARDS. Doubt fluid overload with his clinical scenario extubated yesetrday with goals of comfort care Status: Acute Code(s): E87.2 - Acidosis (2) Acute UTI (urinary tract infection): Initially on Rocephin Chlamydia, GC negative. Status: Acute Code(s): N39.0 - Urinary tract infection, site not specified (3) Pancreatic mass: Also with possible pancreatitis. Repeat CT with multiple unchanged hepatic metastasis and possible peritoneal carcinamatomsis at the splenic flexure. abx discontinued in keeping with goals of comfort Status: Acute Code(s): K86.89 - Other specified diseases of pancreas (4) Hepatic lesion: Consistent with metastatic disease Status: Acute Code(s): K76.9 - Liver disease, unspecified (5) Constipation: Resolved Status: Acute Code(s): K59.00 - Constipation, unspecified (6) Dehydration: Resolved Status: Acute Code(s): E86.0 - Dehydration Additional A&P Information Acute respiratory failure, with difficulty compensating for severe metabolic acidosis. evidence on chest x-ray of development of ARDS. Alcoholism with concern for alcohol withdrawal Transaminitis, liver function tests are worsening, which may herald hepatic failure Hyperlipidemia. Hold statin secondary to transaminitis Chronic pain on daily opioids. 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 Thrombocytopenia: Likely secondary to alcoholism Diabetes mellitus type 2: insulin discontinued due to comfort care measures DVT prophylaxis: SCDs, no pharmacologic prophylaxis due to thrombocytopenia DNR/DNI Dispo: comfort care, hspice referral. Lives alone, may not be a candidate for home hospice, trying for SNF with hospice Attestations Medical Necessity Statement*: comfort care Coding Level of Care Code Acute Poolroom Table Attendant for Valenteg Fwd Diagnoses Alcoholic ketoacidosis E87.2 Acute UTI (urinary tract infection) N39.0 Pancreatic mass K86.89 Hepatic lesion K76.9 Constipation K59.00 Dehydration E86.0
--- NOTE | 2019-08-06 15:19 | PC.CHAP ---
Pastoral Care Encounter/Spiritual Assessment Type of Contact [] Declined finished yarn examiner visit [] Patient/Family/Request visit [] Outpatient visit [] Follow-up visit [] Physician referral [] Code/Alert [] Routine visit [] Staff referral [] Actively dying [] Patient sleeping [] Family support [] [] Out of room [] Palliative care [] [x] Receiving care in room [] Pre-surgical visit [] Trauma [] Long length of stay [] ICU visit [] Other: Relational/Emotional Strength [] Patient feels connected with others/family/visitors/staff [] Distress [] Loneliness/isolation [] Abandonment Spirituality of Patient [] Person of Cece [] Attends Oriental Orthodox of their Cece [] Believes in Prayer [] Reads Bible or Orthodoxy materials [] There are Spiritual issues to be addressed Tree Loader Meat Interventions [] Prayer [] Active listening [] Non-anxious presence [] Spiritual/emotional support [] Crisis/trauma care [] Spiritual counseling [] Bereavement support [] Provided bereavement packet [] Provided Bible/devotional materials [] Provided toy/stuffed animal, coloring book to patient or family member [] Provided Communion [] Anointing/[place] [] Salvation [] Completed spiritual assessment [] Other: Impact on Illness or Injury [] Angry [] Fearful [] Anxious [] Often cries [] Exhaustion [] Unable to work [] Unable to attend buddhist [] Unable to walk/stand [] Unable to read [] Unable to drive [] Unable to eat/drink [] Unable to sleep [] Unable to be with family [] Patient intubated [] Other: Summary Tree Loader Meat request follow up visit for patient. Time spent with patient
[2019-08-06] MEDS: trazodone 100 mg Tablet 200 MG PO (23:02)
[2019-08-07] VITALS (9 sets, daily range): BP systolic 90–143; BP diastolic 58–95; PULSE 77–111; RESP 16–35; TEMP 36.4–36.8; O2SAT 90–95
[2019-08-07] MEDS: morphine 4 mg/mL SDV 1 mL IVP (07:33)
[2019-08-07] MEDS: pantoprazole DR 40 mg Tablet PO (07:33)
[2019-08-07] MEDS: PARoxetine 20 mg Tablet PO (07:33)
[2019-08-07] MEDS: tizanidine 4 mg Tablet PO ×2 (07:33→20:54)
[2019-08-07] MEDS: LORazepam 2 mg/mL INJ 1 mL IVP ×2 (07:34→20:56)
[2019-08-07] MEDS: oxyCODONE 20 mg ER (12 HR) Tablet PO ×2 (12:41→20:54)
[2019-08-07] MEDS: ondansetron 2 mg/ML SDV 2 mL 4 MG IVP (12:41)
--- NOTE | 2019-08-07 13:07 | PC.SOCIAL ---
Pg 2 IMM Explained to pt Pg 2 IMM. Pt verbally understands & signed. No questions voiced. Provided a copy to pt & left on pt's bedside table. Signed, dated, & timed then placed in chart.
--- NOTE | 2019-08-07 15:04 | PM.PN ---
Subjective Subjective: Interval history: Looks comfortable, asleep at time of exam, does not look distressed Medications: Reviewed: Yes Vitals/I&O/Wt Last Vital Signs Temp 97.7 F 08/07/19 11:17 Pulse 81 08/07/19 11:17 Resp 35 H 08/07/19 12:41 BP 90/60 08/07/19 11:17 Pulse Ox 90 08/07/19 11:17 08/07/19 08/07/19 08/07/19 06:59 14:59 22:59 Intake Total 340 / 1480 100 / 100 Output Total 750 / 750 Balance 339 / 1479 -650 / -650 Physical Exam Narrative: EXAM NARRATIVE: not examined today to allow comfort. Patient sound asleep Data : 08/05/19 04:49 08/05/19 04:49 Micro: Microbiology 08/04/19 15:10 Gram Stain - Final Sputum - Endotracheal Tube Aspirate Sputum Culture - Preliminary 08/02/19 10:39 Blood Culture - Final Blood NO GROWTH AFTER 5 DAYS A&P Assessment and plan (1) Alcoholic ketoacidosis: Patient had worsening metabolic acidosis worsened significantly over the course of 08/03 which eventually required him to be intubated Chest x-ray demonstrates bilateral increasing infiltrates likely to represent ARDS. Doubt fluid overload with his clinical scenario extubated eventually with goals of comfort care. Since extubation continues to be extremely lethargic, drowsy, deconditioned. Status: Acute Code(s): E87.2 - Acidosis (2) Acute UTI (urinary tract infection): Initially on Rocephin Chlamydia, GC negative. Status: Acute Code(s): N39.0 - Urinary tract infection, site not specified (3) Pancreatic mass: Also with possible pancreatitis. Repeat CT with multiple unchanged hepatic metastasis and possible peritoneal carcinamatomsis at the splenic flexure. abx discontinued in keeping with goals of comfort Status: Acute Code(s): K86.89 - Other specified diseases of pancreas (4) Hepatic lesion: Consistent with metastatic disease Status: Acute Code(s): K76.9 - Liver disease, unspecified (5) Constipation: Resolved Status: Acute Code(s): K59.00 - Constipation, unspecified (6) Dehydration: Resolved Status: Acute Code(s): E86.0 - Dehydration Additional A&P Information Acute respiratory failure, with difficulty compensating for severe metabolic acidosis. evidence on chest x-ray of development of ARDS. Alcoholism with concern for alcohol withdrawal Transaminitis, liver function tests are worsening, which may herald hepatic failure Hyperlipidemia. Hold statin secondary to transaminitis Chronic pain on daily opioids. 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 Thrombocytopenia: Likely secondary to alcoholism Diabetes mellitus type 2: insulin discontinued due to comfort care measures DVT prophylaxis: SCDs, no pharmacologic prophylaxis due to thrombocytopenia DNR/DNI Dispo: comfort care, hspice referral. Lives alone, may not be a candidate for home hospice, trying for SNF with hospice Attestations Medical Necessity Statement*: comfort care awaiting placement Coding Level of Care Code Acute Promotions Assistant for Valenteg Fwd Diagnoses Alcoholic ketoacidosis E87.2 Acute UTI (urinary tract infection) N39.0 Pancreatic mass K86.89 Hepatic lesion K76.9 Constipation K59.00 Dehydration E86.0
--- NOTE | 2019-08-07 19:40 | PC.NURSE ---
Patient's blood pressure is low 91/58. Nurse been notified.
[2019-08-08] VITALS (13 sets, daily range): BP systolic 83–168; BP diastolic 56–113; PULSE 74–109; RESP 16–22; TEMP 36.3–36.8; O2SAT 93–100
--- NOTE | 2019-08-08 00:44 | PC.NURSE ---
Patient's blood pressure is low 83/58. Nurse been notified.
--- NOTE | 2019-08-08 01:20 | PC.NURSE ---
Patient's blood pressure been rechecked and it is still low 84/56. Nurse been notified.
[2019-08-08] MEDS: LORazepam 2 mg/mL INJ 1 mL IVP ×3 (04:38→17:22)
[2019-08-08] MEDS: oxyCODONE 20 mg ER (12 HR) Tablet PO ×2 (08:19→19:55)
[2019-08-08] MEDS: pantoprazole DR 40 mg Tablet PO (08:20)
[2019-08-08] MEDS: PARoxetine 20 mg Tablet PO (08:20)
--- NOTE | 2019-08-08 09:59 | P.PN_ITS ---
Subjective Subjective: Interval history: patient has been more awake and alert since yesterday evening. Per reports, he had been coherent, worried about diagnosis and further steps, requested a family meeting with the hospital team which happened at 9am today. Patient is clearly able to recall events leading up to admission. Recalls being in severe pain last few weeks, presenting to ER for the same, found to have a pancreatic and multiple liver lesions resembling malignancy. Thereafter does not remember events leading up to ICU admission, being intubated, etc. Medications: Reviewed: Yes Vitals/I&O/Wt Last Vital Signs Temp 97.4 F L 08/08/19 07:26 Pulse 94 08/08/19 07:26 Resp 17 08/08/19 08:19 BP 108/74 08/08/19 07:26 Pulse Ox 99 08/08/19 07:26 08/07/19 08/08/19 08/08/19 22:59 06:59 14:59 Intake Total 100 / 200 100 / 300 600 / 600 Output Total 450 / 1200 350 / 350 Balance -350 / -1000 100 / -900 250 / 250 Physical Exam Narrative: EXAM NARRATIVE: GEN: Awake, alert and oriented, no acute distress CVS: S1S2 N RS: CTA B/L Abd: Soft, mildly distended, tenderness to palpation over RUQ, BS+ AUTOMOBILE LOCATOR: no focal neuro deficits EXT: s/p amputation RUE, left upper extremity with several contractures, known previosuly Data : 08/08/19 11:33 08/08/19 11:33 Micro: Microbiology 08/04/19 15:10 Gram Stain - Final Sputum - Endotracheal Tube Aspirate Sputum Culture - Preliminary 08/02/19 10:39 Blood Culture - Final Blood NO GROWTH AFTER 5 DAYS A&P Assessment and plan (1) Alcohol abuse: Status: Acute Code(s): F10.10 - Alcohol abuse, uncomplicated (2) Dehydration: Status: Acute Code(s): E86.0 - Dehydration (3) Chronic alcoholic pancreatitis: Status: Acute Code(s): K86.0 - Alcohol-induced chronic pancreatitis (4) Alcoholic ketoacidosis: Status: Acute Code(s): E87.2 - Acidosis (5) Pancreatic mass: Status: Acute Code(s): K86.89 - Other specified diseases of pancreas (6) Pancreatitis: Status: Acute Code(s): K85.90 - Acute pancreatitis without necrosis or infection, unspecified (7) Hepatic lesion: Status: Acute Code(s): K76.9 - Liver disease, unspecified (8) Hypokalemia: Status: Acute Code(s): E87.6 - Hypokalemia (9) Diabetes mellitus: Status: Acute Code(s): E11.9 - Type 2 diabetes mellitus without complications Additional A&P Information 49 year old male with h/o chronic alcoholism, admitted on 08/02 with c/o nausea vomiting and abdominal pain, found to have pancreatic mass with multiple liver lesions and peritoneal deposits which appear suspicious for metastatsic disease. Hospital course c/b alcohol withdrawal, hepatic dysfunction/failure, encephalopathy, severe alcoholic ketoacidosis leading to metabolic acidosis, ARDS resulting in endotracheal intubation on 08/03. Given overall poor prognosis and multiple comorbities, after discussion with family, patient was eventually extubated with goals of comfort care. Patient remained lethargic, poorly responsive until evening of 08/06 when his mental status improved to the point where he is now awake, alert and oriented. He requested a family meeting this morning. With his sister at bedside, he was updated regarding all events of this admission including the ICU admission, mechanical ventilation and comfort care measures. He acknowledged understanding of all events. After consideration of all events, he decided that he wanted to decline hospice and comfort care measures at this time. He would like to pursue work up of his pancreatic and liver lesions and then explore treatment options based on diagnosis. In the interim while undergoing work up, he understands that he is significantly deconditioned and cannot live alone, therefore is agreeable to SNF placement. In keeping with his expressed wishes, his code status has been now changed to full code. An US diagnostic biopsy of liver lesions has been scheuled for Monday. We will obtain labs and CT chest to ascretain extent of disease/ follow up on ARDS Resume home medications as appropriate Reinstate vitals check and intake/output assessment Start insulin sliding scale. Full code DVT ppx: SCDs, wait for INR before starting anticoagulation Attestations Medical Necessity Statement*: taken off comfort care, pursuing work up of new liver lesions Coding Level of Care Code Acute Architecture Internship for Chg Fwd Diagnoses Alcohol abuse F10.10 Dehydration E86.0 Chronic alcoholic pancreatitis K86.0 Alcoholic ketoacidosis E87.2 Pancreatic mass K86.89 Pancreatitis K85.90 Hepatic lesion K76.9 Hypokalemia E87.6 Diabetes mellitus E11.9
--- NOTE | 2019-08-08 10:46 | CT_ITS ---
WS: [id number] CT CHEST WITHOUT INTRAVENOUS CONTRAST HISTORY: ARDS follow up TECHNIQUE: Contiguous 5 mm axial imaging performed on the thorax. Coronal and sagittal reformats are submitted. All CT scans at [facility] use at least one of these dose optimization techniq ues: automated exposure control; mA and/or kV adjustment per patient size (includes targeted exams wh ere dose is matched to clinical indication); or iterative reconstruction. CONTRAST: None DLP: 864.27 mGy.cm COMPARISON: 02/17/2017, 08/04/2019 chest radiograph. Lungs and central airway: As compared to the prior chest x-ray there is a significant improvement in the pulmonary opacifications. Continued groundglass opacifications in a mosaic attenuation. Sparing o f the periphery of the lungs. 7 mm ovoid nodule LEFT upper lobe. Additional small subcentimeter nodul es at the lingula. There is no suspicious mass. Pleura: Very small bilateral layering pleural effusions. Heart and pericardium: Mild cardiomegaly. Mediastinum and noelle: No mediastinum or hilar adenopathy. Vessels: Mild coronary artery atherosclerosis. Normal size aorta. Chest wall and lower neck: Bilateral gynecomastia. Upper abdomen: Small hiatal hernia. Severe variable attenuation throughout the liver from hepatic yvette atosis. On prior studies there is nodular enhancement which raises the possibility of metastatic dise ase or abscesses. These cannot be further evaluated on this examination without IV contrast. Prior ch olecystectomy. Lobulated cystic mass associated with the distal pancreas was not present on 06/08/2019. There is adjacent small mesenteric lymph nodes. Osseous structures: No destructive process. CT/CT chest wo con [id number] IMPRESSION: 1. Significant improvement in aeration of both lungs since the chest radiograp h from 08/04/2019. Nearly resolved ARDS. 2. Continued mild haziness and groundglass attenuation probably from residual edema. 3. Very small bilateral pleural effusions. 4. Abnormal appearance to the liver which has been previously described. There is severe hepatic steatosis. Possibility of abscesses or metastatic disease lemus s been reported. There is an additional lobulated cystic mass with thick septat ions in the pancreatic body. This mass is new since 06/08/2019. May be associated with pancreatitis/pseudocyst. Pancreas neoplasm not completely excluded.
[2019-08-08 11:11] LABS: Glucose Point of Care 206 mg/dL (70-110)
[2019-08-08] MEDS: morphine 4 mg/mL SDV 1 mL 2 MG IVP ×2 (12:16→17:22)
[2019-08-08 12:24] LABS: Basophils % 0.2 %; Eosinophils # 0.1 10^3/uL (0.0-0.8); Eosinophils % 0.5 %; Hematocrit 29.4 % (42.0-52.0); Hemoglobin 10.3 g/dL (11.7-16.6); Lymphocytes # 1.5 10^3/uL (0.8-4.8); Lymphocytes % 12.7 %; Mean Corpuscular Hemoglobin 29.7 pg (28.0-34.0); Mean Corpuscular Volume 84.7 fL (80-94); Monocytes # 2.3 10^3/uL (0.2-0.9); Monocytes % 19.4 %; Neutrophils # 7.6 10^3/uL (1.8-7.7); Neutrophils % 64.6 %; Nucleated Red Blood Cells # 0.1 /100WBC; Nucleated Red Blood Cells % 0.4 %; Platelet Count 305 10^3/cmm (130-400); Red Blood Count 3.47 10^6/uL (4.1-5.3); Red Cell Distribution Width 17.1 % (12.1-15.1); White Blood Count 11.8 10^3/uL (4.0-10.0)
[2019-08-08 12:34] LABS: INR 1.01 (0.8-1.2)
[2019-08-08 12:59] LABS: Estmated Average Glucose 171; Hemoglobin A1C 7.6 % (4.0-6.0)
[2019-08-08 13:12] LABS: Alanine Aminotransferase 98 U/L (0-41); Albumin Level 2.2 g/dL (3.5-5.2); Alkaline Phosphatase 896 IU/L (40-130); Anion Gap 17.7 (5-19); Aspartate Amino Transferase 316 U/L (0-40); Blood Urea Nitrogen 32 mg/dL (6-20); Calcium 8.6 mg/dL (8.5-10.5); Carbon Dioxide 28 mmol/L (22-29); Chloride 91 mmol/L (98-107); Globulin 4.1 g/dL (1.3-4.6); Glomerular Filtration Rate 19.3 mL/min (90-130); Glucose 207 mg/dL (65-115); Sodium 134 mmol/L (136-145); Total Protein 6.3 g/dL (6.6-8.7)
[2019-08-08 13:23] LABS: Potassium 2.7 mmol/L (3.5-5.1)
[2019-08-08 13:24] LABS: Total Bilirubin 7.7 mg/dL (0.15-1.2)
--- NOTE | 2019-08-08 13:24 | PC.NURSE ---
Potassium 2.7 T bili 7.7
[2019-08-08 16:38] LABS: Glucose Point of Care 179 mg/dL (70-110)
[2019-08-08] MEDS: potassium chloride premix 40 MEQ/100 ML PREMIX 25 MEQ IV ×2 (18:24→22:26)
[2019-08-08] MEDS: tizanidine 4 mg Tablet PO (19:55)
[2019-08-08 20:33] LABS: Glucose Point of Care 187 mg/dL (70-110)
[2019-08-08] MEDS: sodium chloride 0.9% 1,000 ML 75 ML IV (20:59)
[2019-08-08] MEDS: trazodone 100 mg Tablet 200 MG PO (21:00)
[2019-08-08] MEDS: NIFEdipine 10 mg Capsule 20 MG PO (21:00)
[2019-08-09] VITALS (11 sets, daily range): BP systolic 94–145; BP diastolic 60–87; PULSE 92–110; RESP 16–22; TEMP 36.6–37.1; O2SAT 95–100
[2019-08-09] MEDS: morphine 4 mg/mL SDV 1 mL 2 MG IVP ×3 (02:45→20:01)
[2019-08-09 06:07] LABS: Basophils % 0.2 %; Eosinophils % 0.3 %; Hematocrit 26.8 % (42.0-52.0); Hemoglobin 9.3 g/dL (11.7-16.6); Lymphocytes % 10.6 %; Mean Corpuscular HGB Conc 34.7 g/dL (30.0-36.0); Mean Corpuscular Hemoglobin 30.7 pg (28.0-34.0); Mean Corpuscular Volume 88.4 fL (80-94); Mean Platelet Volume 11.1 fL (7.4-10.4); Monocytes # 1.9 10^3/uL (0.2-0.9); Monocytes % 20.5 %; Neutrophils # 6.1 10^3/uL (1.8-7.7); Neutrophils % 64.9 %; Nucleated Red Blood Cells # 0.1 /100WBC; Nucleated Red Blood Cells % 0.5 %; Platelet Count 308 10^3/cmm (130-400); Red Blood Count 3.03 10^6/uL (4.1-5.3); Red Cell Distribution Width 16.8 % (12.1-15.1); White Blood Count 9.4 10^3/uL (4.0-10.0)
[2019-08-09 06:32] LABS: Alanine Aminotransferase 109 U/L (0-41); Albumin Level 1.7 g/dL (3.5-5.2); Alkaline Phosphatase 868 IU/L (40-130); Anion Gap 16.9 (5-19); Aspartate Amino Transferase 349 U/L (0-40); Blood Urea Nitrogen 30 mg/dL (6-20); Calcium 8.3 mg/dL (8.5-10.5); Carbon Dioxide 26 mmol/L (22-29); Chloride 95 mmol/L (98-107); Creatinine Clr Calc Pharmacy 35.8105; Globulin 3.6 g/dL (1.3-4.6); Glomerular Filtration Rate 24.1 mL/min (90-130); Glucose 185 mg/dL (65-115); Sodium 135 mmol/L (136-145); Total Protein 5.3 g/dL (6.6-8.7)
[2019-08-09 06:49] LABS: Potassium 2.9 mmol/L (3.5-5.1); Total Bilirubin 8.8 mg/dL (0.15-1.2)
[2019-08-09 07:24] LABS: Glucose Point of Care 180 mg/dL (70-110)
[2019-08-09] MEDS: potassium chloride premix 40 MEQ/100 ML PREMIX 25 MEQ IV ×2 (08:23→17:20)
[2019-08-09] MEDS: pantoprazole DR 40 mg Tablet PO (08:24)
[2019-08-09] MEDS: PARoxetine 20 mg Tablet PO (08:24)
[2019-08-09] MEDS: isosorbide mononitrate ER 60 mg Tablet PO (08:24)
[2019-08-09] MEDS: metoprolol tartrate 50 mg Tablet PO ×2 (08:24→19:20)
[2019-08-09] MEDS: NIFEdipine 10 mg Capsule 20 MG PO ×3 (08:24→21:18)
[2019-08-09] MEDS: oxyCODONE 20 mg ER (12 HR) Tablet PO ×2 (08:24→19:22)
[2019-08-09] MEDS: ranolazine (12HR) 500 mg Tablet PO ×2 (08:53→19:20)
--- NOTE | 2019-08-09 09:10 | MR_ITS ---
WS: [id number] MRI/MRCP OF THE ABDOMEN WITHOUT GADOLINIUM ENHANCEMENT TECHNIQUE: Thin and thick slab MRCP, Axial T2, Coronal MRCP, Axial Dual Echo, and Axial 2-D Fiesta imaging was obtained. Coronal 2-D Fiesta imaging. CLINICAL INFORMATION: rising ALP and T.bili, concern CBD obstrcution by mass COMPARISON: Multiple prior CTs dating back to June 08, 2019. Prior MRCP June 09, 2019 FINDINGS: Limited examination due to breathing motion Diffuse fatty infiltration of the liver. Prior postoperative changes cholecystectomy. No evidence of choledocholithiasis. Diffuse extensive hepatic metastatic disease similar in appearance to the recent examinations. Innumerable T2 hyperintense lesions throughout both hepatic lobes. This is increased f rom the earlier studies in June. 3 cm T2 hyperintense mass lesion at the pancreatic head unchanged from the recent CTs. Diffuse edema involving the pancreas with dilation of the pancreatic duct consistent with pancreatitis. Lobulated fluid collection along the pancreatic body and tail likely represents pseudocyst appears stable since the recent CT measuring approximately 4.1 x 2.7 CM. Dilatation common bile duct measuring 8 mm with focal tapering at the pancreatic head consistent with at least partial obstruction at the level of th e pancreatic head mass. Focal narrowing in this area. This appears increased from the prior MRCP. Small bilateral pleural effusions. Normal caliber upper abdominal aorta. Normal renal parenchymal enh ancement. No hydronephrosis. MR/MR MRCP [id number] Impression: 1. Diffuse hepatic metastatic disease with innumerable T2 hyperintense lesions throughout both hepatic lobes. 2. T2 hyperintense 3 cm mass lesion in the head of the pancreas with associate d adjacent tapered narrowing of the common bile duct and proximal dilatation me asuring 8 mm. 3. Diffuse edema and inflammatory changes about the pancreas consistent with p ancreatitis. Lobulated fluid collection along the pancreatic body and tail most likely represent pseudocyst and appears unchanged recent studies. 4. Small bilateral pleural effusions..
[2019-08-09 11:20] LABS: Glucose Point of Care 194 mg/dL (70-110)
--- NOTE | 2019-08-09 12:40 | PC.SOCIAL ---
IMM Updated Updated pt on Pg 2 IMM. Provided pt a copy & left on pt's bedside table. No questions voiced. Signed, dated, & timed original in chart.
[2019-08-09] MEDS: LORazepam 2 mg/mL INJ 1 mL IVP ×2 (14:15→20:02)
--- NOTE | 2019-08-09 14:37 | PC.NURSE ---
MIDLINE LEFT ARM. No difficulties. See insertion note for further details. Ready for use.
--- NOTE | 2019-08-09 16:18 | PM.PN ---
Subjective Subjective: Interval history: no acute overnight events, appears tired this morning, T. bili continues to increase, ALP elevated, planned for MRCP today. Medications: Reviewed: Yes Vitals/I&O/Wt Last Vital Signs Temp 98.7 F 08/09/19 11:40 Pulse 107 H 08/09/19 11:40 Resp 22 H 08/09/19 14:18 BP 94/60 08/09/19 11:40 Pulse Ox 95 08/09/19 11:40 08/09/19 08/09/19 08/09/19 06:59 14:59 22:59 Intake Total 200 / 1620 250 / 250 Output Total 300 / 300 Balance / -50 / -50 Physical Exam Narrative: EXAM NARRATIVE: GEN: Awake, alert and oriented, appears more tired compared to yesterday CVS: S1S2 N RS: CTA B/L Abd: Soft, mildly distended, tenderness to palpation over RUQ, BS+ TRAINING PROGRAM MANAGER: no focal neuro deficits EXT: s/p amputation RUE, left upper extremity with several contractures, known previosuly Data : 08/09/19 05:25 08/09/19 05:25 Micro: Microbiology 08/04/19 15:10 Gram Stain - Final Sputum - Endotracheal Tube Aspirate Sputum Culture - Final A&P Assessment and plan (1) Alcohol abuse: Status: Acute Code(s): F10.10 - Alcohol abuse, uncomplicated (2) Dehydration: Resolved Status: Acute Code(s): E86.0 - Dehydration (3) Chronic alcoholic pancreatitis: Status: Acute Code(s): K86.0 - Alcohol-induced chronic pancreatitis (4) Alcoholic ketoacidosis: Patient had worsening metabolic acidosis worsened significantly over the course of 08/03 which eventually required him to be intubated Chest x-ray demonstrates bilateral increasing infiltrates likely to represent ARDS. Doubt fluid overload with his clinical scenario extubated eventually with goals of comfort care. Since extubation continues to be extremely lethargic, drowsy, deconditioned. Status: Acute Code(s): E87.2 - Acidosis (5) Pancreatic mass: Also with possible pancreatitis. Repeat CT with multiple unchanged hepatic metastasis and possible peritoneal carcinamatomsis at the splenic flexure. abx discontinued in keeping with goals of comfort Status: Acute Code(s): K86.89 - Other specified diseases of pancreas (6) Pancreatitis: Status: Acute Code(s): K85.90 - Acute pancreatitis without necrosis or infection, unspecified (7) Hepatic lesion: Consistent with metastatic disease Status: Acute Code(s): K76.9 - Liver disease, unspecified (8) Hypokalemia: Status: Acute Code(s): E87.6 - Hypokalemia (9) Diabetes mellitus: Status: Acute Code(s): E11.9 - Type 2 diabetes mellitus without complications Additional A&P Information 49 year old male with h/o chronic alcoholism, admitted on 08/02 with c/o nausea vomiting and abdominal pain, found to have pancreatic mass with multiple liver lesions and peritoneal deposits which appear suspicious for metastatsic disease. Hospital course c/b alcohol withdrawal, hepatic dysfunction/failure, encephalopathy, severe alcoholic ketoacidosis leading to metabolic acidosis, ARDS resulting in endotracheal intubation on 08/03. Given overall poor prognosis and multiple comorbities, after discussion with family, patient was eventually extubated with goals of comfort care. Patient remained lethargic, poorly responsive until evening of 08/06 when his mental status improved to the point where he is now awake, alert and oriented. He requested a family meeting this morning. With his sister at bedside, he was updated regarding all events of this admission including the ICU admission, mechanical ventilation and comfort care measures. He acknowledged understanding of all events. After consideration of all events, he decided that he wanted to decline hospice and comfort care measures at this time. He would like to pursue work up of his pancreatic and liver lesions and then explore treatment options based on diagnosis. In the interim while undergoing work up, he understands that he is significantly deconditioned and cannot live alone, therefore is agreeable to SNF placement. In keeping with his expressed wishes, his code status has been now changed to full code. An US diagnostic biopsy of liver lesions has been scheuled for Monday. We will obtain labs and CT chest to ascretain extent of disease/ follow up on ARDS Resume home medications as appropriate Reinstate vitals check and intake/output assessment Start insulin sliding scale. Full code DVT ppx: SCDs, wait for INR before starting anticoagulation Coding Level of Care Code Acute Drilling Contractor for Chg Fwd Diagnoses Alcohol abuse F10.10 Dehydration E86.0 Chronic alcoholic pancreatitis K86.0 Alcoholic ketoacidosis E87.2 Pancreatic mass K86.89 Pancreatitis K85.90 Hepatic lesion K76.9 Hypokalemia E87.6 Diabetes mellitus E11.9
[2019-08-09] MEDS: sodium chloride 0.9% 1,000 ML 75 ML IV (17:20)
[2019-08-09 17:22] LABS: Glucose Point of Care 213 mg/dL (70-110)
--- NOTE | 2019-08-09 20:26 | PM.TDS ---
Transfer Summary Providers Date of Admission: 08/02/19 Date of Discharge: 08/09/19 Attending Provider at Admission: May Lubin DO Attending Provider at Transfer: Rowena Croft MD Primary Care Provider: Ashley Clark DO Anticipated Date of Transfer: Anticipated date of transfer: 08/09/19 Receiving Facility & Provider: Receiving Provider: [Dr. Guo, Hospitalist] Receiving facility: [[facility]] Diagnoses at Discharge Discharge Diagnosis (1) Alcohol abuse: Status: Acute (2) Dehydration: Status: Acute (3) Chronic alcoholic pancreatitis: Status: Acute (4) Alcoholic ketoacidosis: Status: Acute (5) Pancreatic mass: Status: Acute (6) Hepatic lesion: Status: Acute (7) Hypokalemia: Status: Acute (8) Diabetes mellitus: Status: Acute (9) Common bile duct (CBD) obstruction: Status: Acute Reason for Visit Reason for Visit: Reason For Visit: WEAKNESS/ VOMITING Hospital Course Discharge Summary: Collins Evans is a 49-year-old male who has a diagnosis of coronary artery disease, hypertension, diabetes mellitus, chronic alcoholism, depression with suicidal ideation, obstructive sleep apnea on nightly CPAP, 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 He was recently diagnosed to have a 3 cm pancreatic head mass, pancreatitis and also multiple liver lesions in early June of this year and was recommended outpatient work-up for the same, however it seems like there was some noncompliance with follow-up. He presented to the emergency department on 08/02/2019 with chief complaints of intractable nausea vomiting and worsening abdominal pain inadequately controlled while on oxycodone. He stated being depressed with the recent discovery of masses and had been drinking excessively in the 2 weeks leading up to admission. Upon presentation he was found to be in alcoholic ketoacidosis and initially started on IV fluid resuscitation. He was also put on [facility] protocol for concerns of alcohol withdrawal. LFTs upon arrival were with T bili of 2.6(up from 0.4 in June), AST 160 ALT 98 alkaline phosphatase 611. On August 03 he had an acute change in clinical status and was noted to be developing worsening respiratory failure requiring emergent intubation with chest x-ray showing bilateral diffuse infiltrates raising concern for ARDS. Notable labs included worsening metabolic acidosis for which she was started on bicarbonate drip. Aspiration pneumonia could not be excluded and he was started on broad antibiotic coverage with cefepime and Flagyl. CT abdomen was repeated which showed pancreatic head mass which appeared larger than previous and increasing liver disease which appeared to be consistent with metastases. He was transiently hypotensive and required Levophed support for a few hours on the same day. After discussion between the hospitalist team and the family, given this patient's past comorbidities and high possibility of malignancy, his family opted to withdraw care and proceed only with comfort measures and patient was therefore extubated in the evening of 08/05/2019. He received only comfort measures with morphine and Ativan as needed on 08/05 and 08/06. All other medications were discontinued and lab checks discontinued. Patient remained obtunded on both of these days and was unable to participate in meaningful conversation. Late in the evening of 08/06 the patient started to show improvement. He became much more responsive, was awake alert and oriented and requested a meeting with family and hospital staff the next morning. On 08/07 with his sister at bedside, he was updated regarding all events of the admission including the ICU admission, mechanical ventilation and comfort care measures. He acknowledged understanding of all events. After careful consideration of all events, he decided that he wanted to decline hospice and comfort care measures at this time. He wishes to pursue work-up of his pancreatic and liver lesions and then explore options based on diagnosis including but not limited to chemoradiation if needed. In keeping with his expressed wishes CODE STATUS was then changed from DNR/comfort care to full code. An ultrasound-guided diagnostic biopsy of liver lesions has been scheduled for Monday. CT of the chest was obtained which showed marked improvement in bilateral chest infiltrates and near resolution of ARDS. His home medications were resumed, however aspirin and Plavix have been on hold in anticipation of liver biopsy. In the interim as lab checks were reinstated it was noted that his T bili had now risen from 2.6 upon admission to 7.7 and most recently to 8.8. Alkaline phosphatase has similarly continued to rise up to 868. Given rapidly worsening liver function, an MRCP was obtained earlier this afternoon which showed diffuse hepatic metastatic disease with innumerable T2 hyperintense lesions throughout both hepatic lobes. T2 hyperintense 3 cm mass lesion in the head of pancreas with associated adjacent tapered narrowing of the CBD and proximal dilatation measuring 8 mm. This appeared increased compared to his last MRCP on June 09, 2019. Diffuse edema and infiltrate changes about the pancreas were also noted consistent with pancreatitis. Other notable events include SRINATH with worst creatinine peak at 3.4. With change in CODE STATUS to full code, IV fluid resuscitation was again reinitiated and creatinine is now trending down to 2.8. For IV access he had a left groin central line placed emergently on August 03. This has since been removed today after obtaining IV access via left upper extremity midline (difficult iv access otherwise). Given the above findings, it is likely that he will benefit from ERCP and possible CBD stenting, for which he is being transferred to [facility]. I discussed extensively with patient and his Sister Alka again regarding goals of care. Patient states that this is in keeping with his wishes to pursue full diagnostic work-up of his lesions and further treatment as appropriate. He understands that he continues to remain extremely high risk and possibly with poor prognosis and wishes to proceed with the transfer. Physical Exam Narrative: EXAM NARRATIVE: GEN: Awake, alert and oriented, no acute distress HEENT: icterus+ CVS: S1S2 N RS: CTA B/L all areas Abd: Soft, nt/nd , bs+ BLACK TOP ROLLER: no focal neuro deficits Ext: s/p amputation RUE, left upper extremity PIcc in place, placed 3 TS Data Data Completed and Pending: Completed Studies During Hospitalization Category Date Time Status CT abdomen pelvis wo con [id number] Urge nt Cat Scan 08/04/19 07:[address] abdomen pelvis wo/w [id number] Routin e Cat Scan 08/02/19 16:[address] chest wo con 7 1250 Routine Cat Scan 08/08/19 10:46 Completed CXRP [XR chest 1V portable [id number]] S tat Exams 08/04/19 13:56 Completed XR chest 1V snehal ble [id number] Stat Exams 08/04/19 07:53 Completed MR MRCP [id number] Rou gustavo MRI 08/09/19 09:10 Completed US abdomen limite d 30206 Urgent Ultrasound 08/02/19 15:28 Completed Pending at discharge Category Date Time Status Complete Blood Co unt w/Auto AM LABS Lab 08/10/19 04:00 Ordered Complete Blood Co unt w/Auto AM LABS Lab 08/11/19 04:00 Ordered Comprehensive Met abolic Panel AM LA BS Lab 08/10/19 04:00 Ordered Comprehensive Met abolic Panel AM LA BS Lab 08/11/19 04:00 Ordered US biopsy liver 4 7000 Routine Ultrasound 08/12/19 07:00 Ordered US biopsy liver 4 7000 Routine Ultrasound 08/12/19 12:52 Ordered Labs from last 24 hours 08/09/19 08/09/19 08/09/19 17:12 10:58 06:39 WBC RBC Hgb Hct MCV MCH MCHC RDW Plt Count MPV Neut % (Auto) Lymph % (Auto) [place] % (Auto) Eos % (Auto) Baso % (Auto) Neut # (Auto) Lymph # (Auto) [place] # (Auto) Eos # (Auto) Baso # (Auto) Nucleated RBC % (a uto) Nucleated RBCs # Sodium Potassium Chloride Carbon Dioxide Anion Gap BUN Creatinine GFR Calculation Glucose POC Glucose 213 194 180 Calcium Total Bilirubin AST ALT Alkaline Phosphata se Total Protein Albumin Globulin 08/09/19 08/09/19 08/08/19 05:25 05:25 19:53 WBC 9.4 RBC 3.03 L Hgb 9.3 L Hct 26.8 L MCV 88.4 MCH 30.7 MCHC 34.7 RDW 16.8 H Plt Count 308 MPV 11.1 H Neut % (Auto) 64.9 Lymph % (Auto) 10.6 [place] % (Auto) 20.5 Eos % (Auto) 0.3 Baso % (Auto) 0.2 Neut # (Auto) 6.1 Lymph # (Auto) 1.0 [place] # (Auto) 1.9 H Eos # (Auto) 0.0 Baso # (Auto) 0.0 Nucleated RBC % (a uto) 0.5 Nucleated RBCs # 0.1 Sodium 135 L Potassium 2.9 L Chloride 95 L Carbon Dioxide 26 Anion Gap 16.9 BUN 30 H Creatinine 2.8 H GFR Calculation 24.1 L Glucose 185 H POC Glucose 187 Calcium 8.3 L Total Bilirubin 8.8 H* AST 349 H ALT 109 H Alkaline Phosphata se 868 H Total Protein 5.3 L Albumin 1.7 L Globulin 3.6 Vitals: Last Vital Signs Temp 98.7 F 08/09/19 11:40 Pulse 107 H 08/09/19 11:40 Resp 18 08/09/19 20:01 BP 94/60 08/09/19 11:40 Pulse Ox 99 08/09/19 20:01 TS Medications Medications Home Medications lisinopril 40 mg tablet 40 mg PO DAILY 90 Days #90 tab 07/09/19 [Rx Confirmed 08/02/19] aspirin 81 mg tablet,delayed release 81 mg PO DAILY 07/29/19 [History Confirmed 08/02/19] clopidogrel 75 mg tablet 75 mg PO DAILY 07/29/19 [History Confirmed 08/02/19] dulaglutide 1.5 mg/0.5 mL subcutaneous pen injector See Rx Instructions .ROUTE .COMPLEX 07/29/19 [History Confirmed 08/02/19] fluticasone propionate 50 mcg/actuation blister powder for inhalation 1 inh INHALATION BID 07/29/19 [History Confirmed 08/02/19] isosorbide mononitrate 60 mg tablet,extended release 24 hr 60 mg PO DAILY 07/29/19 [History Confirmed 08/02/19] metoprolol tartrate 50 mg tablet 50 mg PO BID 07/29/19 [History Confirmed 08/02/19] nifedipine 90 mg tablet,extended release 90 mg PO DAILY 07/29/19 [History Confirmed 08/02/19] nitroglycerin 0.4 mg sublingual tablet 0.4 mg SUBLINGUAL Q5M PRN 07/29/19 [History Confirmed 08/02/19] omeprazole 40 mg capsule,delayed release 40 mg PO DAILY 07/29/19 [History Confirmed 08/02/19] oxycodone 20 mg tablet 20 mg PO BID PRN 07/29/19 [History Confirmed 08/02/19] paroxetine HCl 20 mg tablet 20 mg PO DAILY 07/29/19 [History Confirmed 08/02/19] ranolazine 500 mg tablet,extended release,12 hr 500 mg PO BID 07/29/19 [History Confirmed 08/02/19] sennosides 8.6 mg tablet 17.2 mg PO .QHS tab 07/29/19 [History Confirmed 08/02/19] simvastatin 40 mg tablet 40 mg PO DAILY 07/29/19 [History Confirmed 08/02/19] tizanidine 4 mg tablet 4 mg PO TID PRN 07/29/19 [History Confirmed 08/02/19] trazodone 100 mg tablet 200 mg PO DAILY tab 07/29/19 [History Confirmed 08/02/19] Active Medications Albuterol/Ipratropium (Duoneb) 3 ml INHALATION Q4H.RESPIRATORY PRN PRN Reason: SHORTNESS OF BREATH Dextrose (D50w) 25 ml IVP ONCE PRN; Protocol PRN Reason: hypoglycemia protocol Dextrose (D50w) 50 ml IVP PRN PRN; Protocol PRN Reason: hypoglycemia protocol Dextrose (D50w) 25 ml IVP ONCE PRN; Protocol PRN Reason: hypoglycemia protocol Dextrose (D50w) 50 ml IVP PRN PRN; Protocol PRN Reason: hypoglycemia protocol Glucagon (Glucagen) 1 mg IM ONCE PRN; Protocol PRN Reason: Adult Acute Hypoglycemia Prot. Glucagon (Glucagen) 1 mg IM ONCE PRN; Protocol PRN Reason: Adult Acute Hypoglycemia Prot. Dextrose (D5w) 500 mls @ 100 mls/hr IV ONCE PRN; Protocol PRN Reason: Adult Acute Hypoglycemia Prot Dextrose (D5w) 500 mls @ 100 mls/hr IV ONCE PRN; Protocol PRN Reason: Adult Acute Hypoglycemia Prot Sodium Chloride (Sodium Chloride 0.9%) 1,000 mls @ 75 mls/hr IV .[id number] [facility] Last Admin: 08/09/19 17:20 Dose: 75 mls/hr Documented by: Insulin Aspart (Novolog) 0 unit SUBCUT WM&BEDTIME [facility]; Protocol Last Admin: 08/09/19 19:20 Dose: 4 unit Documented by: Isosorbide Mononitrate (Imdur) 60 mg PO DAILY [facility] Last Admin: 08/09/19 08:24 Dose: 60 mg Documented by: Lorazepam (Ativan) 2 mg IVP Q8H PRN PRN Reason: ANXIETY Last Admin: 08/09/19 20:02 Dose: 2 mg Documented by: Metoprolol Tartrate (Lopressor) 50 mg PO BID [facility] Last Admin: 08/09/19 19:20 Dose: 50 mg Documented by: Morphine Sulfate (Morphine) 2 mg IVP Q6H PRN PRN Reason: SEVERE PAIN Last Admin: 08/09/19 20:01 Dose: 2 mg Documented by: Nifedipine (Procardia) 20 mg PO TID [facility] Last Admin: 08/09/19 17:20 Dose: 20 mg Documented by: Ondansetron HCl (Zofran) 4 mg PO Q8H PRN PRN Reason: NAUSEA AND VOMITING Oxycodone HCl (Oxycontin) 20 mg PO BID PRN PRN Reason: MODERATE PAIN Last Admin: 08/09/19 19:22 Dose: 20 mg Documented by: Pantoprazole Sodium (Protonix) 40 mg PO DAILY [facility] Last Admin: 08/09/19 08:24 Dose: 40 mg Documented by: Paroxetine HCl (Paxil) 20 mg PO DAILY [facility] Last Admin: 08/09/19 08:24 Dose: 20 mg Documented by: Senna/Docusate Sodium (Senna-S) 2 tab PO DAILY PRN PRN Reason: CONSTIPATION Tizanidine HCl (Zanaflex) 4 mg PO TID PRN PRN Reason: SPASMS Last Admin: 08/08/19 19:55 Dose: 4 mg Documented by: Trazodone HCl (Desyrel) 100 mg PO BEDTIME [facility] Discharge Plan Discharge Patient Disposition: Xfer Other Condition: Stable Prescriptions: No Action simvastatin 40 mg tablet 40 mg PO DAILY RF: 0 oxycodone 20 mg tablet 20 mg PO BID PRN (Reason: Pain) RF: 0 tizanidine 4 mg tablet 4 mg PO TID PRN (Reason: Spasms) RF: 0 ranolazine [Ranexa] 500 mg tablet extended release 12 hr 500 mg PO BID RF: 0 Trulicity 1.5 mg/0.5 mL pen injector See Rx Instructions .ROUTE .COMPLEX RF: 0 isosorbide mononitrate 60 mg tablet extended release 24 hr 60 mg PO DAILY RF: 0 nitroglycerin [Nitrostat] 0.4 mg tablet, sublingual 0.4 mg SUBLINGUAL Q5M PRN (Reason: Chest Pain) RF: 0 nifedipine 90 mg tablet extended release 90 mg PO DAILY RF: 0 metoprolol tartrate 50 mg tablet 50 mg PO BID RF: 0 clopidogrel [Plavix] 75 mg tablet 75 mg PO DAILY RF: 0 sennosides [Senokot] 8.6 mg tablet 17.2 mg PO .QHS RF: 0 omeprazole 40 mg capsule,delayed release(DR/EC) 40 mg PO DAILY RF: 0 fluticasone propionate 50 mcg/actuation blister with device 1 inh INHALATION BID RF: 0 paroxetine HCl [Paxil] 20 mg tablet 20 mg PO DAILY RF: 0 aspirin 81 mg tablet,delayed release (DR/EC) 81 mg PO DAILY RF: 0 trazodone 100 mg tablet 200 mg PO DAILY RF: 0 lisinopril 40 mg tablet 40 mg PO DAILY 90 Days Qty: 90 RF: 3 Discharge Orders: Discharge Order (Routine); Ordered 08/09/19 Ordered By: Rowena Croft Referrals: Ashley Clark DO [Primary Care Provider] - Transfer Attestations Time Spent in Transfer Care*: greater than 30 min Specific Discharge Activities: Specific discharge activities: educating patient, educating and/or supporting family/caregiver, discussing with pcp/other providers and discussing with case loader operator/social workers/dc planners Status at Transfer: Cognitive status at transfer: cognitively intact, Behavioral status at transfer: cooperative, Quality Metrics Clinical Quality Measures: During this hospital stay, did patient experience: None Coding Level of Care Code Acute Laundry Bag Punch Operator for Chg Fwd Diagnoses Alcohol abuse F10.10 Dehydration E86.0 Chronic alcoholic pancreatitis K86.0 Alcoholic ketoacidosis E87.2 Pancreatic mass K86.89 Hepatic lesion K76.9 Hypokalemia E87.6 Diabetes mellitus E11.9 Common bile duct (CBD) obstruction K83.1
[2019-08-09 21:01] LABS: Glucose Point of Care 168 mg/dL (70-110)
[2019-08-09] MEDS: trazodone 100 mg Tablet PO (21:19)
--- NOTE | 2019-08-10 00:02 | PC.NURSE ---
MR JOSSELYN BILL IS BEING TRANSFERRED TO [facility] AT [facility] TO HAVE AN MRCP DONE. NURSE CALLED REPORT TO MANOLO RAMOS RN AT [facility] FOR TRANSFER OF CARE. PAPERWORK WAS COMPLETED AND [facility] WAS CONTACTED FOR TRANSPORT, HE WAS TRANSFERRED WITH 1 ASSIST TO THE [facility] AND PUT ON 3L NC. DEPARTURE AT 2330.
[2019-08-10 00:31] VITALS: BP 145/87; PULSE 92; RESP 18; TEMP 36.6; O2SAT 99
--- NOTE | 2019-08-13 08:41 | PC.SOCIAL ---
Called [facility] spoke with rep who indicates for Level 2 will need to call [facility] where patient was transferred to update regarding application and fax documents. They can choose to start over or continue current process. Call placed to Margaux at [facility] but was unable to reach. Left message. Will update once a return call is received. Was advised to send a secure email to [facility] to update patient has been transferred to [facility] in [place] as well.This was done.
--- NOTE | 2019-08-13 15:38 | PC.SOCIAL ---
Spoke with Margaux and updated her on the [facility] request thus far. Sent all information to her with verification that fax was successful
== END 2019-08-09 23:30 | disposition short-term general hospital (02) | DRG 640 ==
LOC: ER 16:20 → MEDSURG 17:17 → ICU 08-04 08:56 → MEDSURG 08-05 20:20
PROVIDERS: Internal Medicine; Admitting Provider Family Medicine; Emergency Provider Nurse Practitioner Family; Family Provider Family Medicine; PCP Family Medicine; Visit Provider Student in an Organized Health Care Education/Training Program
DX: E87.2 Acidosis (principal); J96.00 Acute respiratory failure, unspecified whether with hypoxia or hypercapnia; N39.0 Urinary tract infection, site not specified; K86.0 Alcohol-induced chronic pancreatitis; F32.9 Major depressive disorder, single episode, unspecified; I10 Essential (primary) hypertension; F17.210 Nicotine dependence, cigarettes, uncomplicated; K86.89 Other specified diseases of pancreas; K76.9 Liver disease, unspecified; K59.00 Constipation, unspecified; E86.0 Dehydration; E87.6 Hypokalemia; E78.5 Hyperlipidemia, unspecified; G89.29 Other chronic pain; I25.10 Atherosclerotic heart disease of native coronary artery without angina pectoris; D69.6 Thrombocytopenia, unspecified; G47.00 Insomnia, unspecified; Z79.899 Other long term (current) drug therapy; F10.20 Alcohol dependence, uncomplicated; Z88.8 Allergy status to other drugs, medicaments and biological substances; Z89.201 Acquired absence of right upper limb, unspecified level; Z79.82 Long term (current) use of aspirin; Z79.51 Long term (current) use of inhaled steroids
CPT/HCPCS: 12345; 36415; 36416; 36569; 36592; 36600; 71045; 71250; 74176; 74178; 74181; 76705; 80048; 80051; 80053; 80074; 80307; 81001; 82803; 82810; 82962; 83036; 83605; 83690; 83735; 83986; 85025; 85610; 87040; 87070; 87086; 87205; 87491; 87591; 87804; 87806; 94002; 94003; 94660; 94799; 96372; 96375; 97166; 99283; A4570; A9270; G0378; J0330; J0692; J0696; J1815; J2001; J2060; J2270; J2405; J2704; J3480; J3490; J7030; J7040; J7050; Q9967; S0030